=== PATIENT | female | born 1955 | race Caucasian/White ===

== ENCOUNTER 2016-08-25 13:56 | Inpatient (IN) ==
--- NOTE | 2016-08-24 22:20 | Discharge Summary ---
<Julia Meadows - Last Filed: 08/24/16 22:18> Date of Encounter: 08/24/16 - Discharge Diagnosis (1) Arthritis of left hip Priority: Primary Status: Acute (2) HTN (hypertension) Priority: Secondary Status: Chronic Qualifiers: Hypertension type: essential hypertension Qualified Code(s): I10 - Essential (primary) hypertension (3) CAD (coronary artery disease) Priority: Secondary Status: Chronic Qualifiers: Coronary Disease-Associated Artery/Lesion type: unspecified vessel or lesion type Associated angina: angina presence unspecified (4) COPD (chronic obstructive pulmonary disease) Priority: Secondary Status: Chronic Qualifiers: COPD type: unspecified COPD Qualified Code(s): J44.9 - Chronic obstructive pulmonary disease, unspecified (5) Tobacco abuse Priority: Secondary Status: Chronic - Discharge Medications Home Medications: Aspirin Enteric Coated [Aspirin EC] 325 mg PO DAILY #21 tablet. 08/24/16 [Rx] OxyCODONE Immed Rel [Roxicodone 5 MG] 5 - 10 mg PO Q6HR PRN #40 tablet 08/24/16 [Rx] Albuterol Neb [Proventil Neb] 2.5 mg IH Q6HR PRN 08/25/16 [History] Albuterol Sulfate [Albuterol Inhaler] 2 puff IH Q4HR PRN 08/25/16 [History] Aspirin [Ecotrin] 325 mg PO DAILY 08/25/16 [History] ClonazePAM [Klonopin] 1 mg PO BID PRN 08/25/16 [History] Clopidogrel [Plavix] 75 mg PO DAILY 08/25/16 [History] Cyclobenzaprine HCl 5 mg PO TID PRN 08/25/16 [History] Fluticasone Propionate [Flovent Hfa] 2 puff IH BID PRN 08/25/16 [History] Furosemide [Lasix] 40 mg PO DAILY 08/25/16 [History] Gabapentin [Neurontin] 600 mg PO TID 08/25/16 [History] Hydroxyzine HCl 25 - 50 mg PO Q6H PRN 08/25/16 [History] Isosorbide MONOnitrate (24 HR) [Imdur] 30 mg PO DAILY 08/25/16 [History] LevETIRAcetam [Keppra] 1,000 mg PO BID 08/25/16 [History] Losartan Potassium [Cozaar] 50 mg PO BID 08/25/16 [History] Metoprolol XL (24 HR) Succ [Toprol Xl] 50 mg PO BID 08/25/16 [History] Nitroglycerin [Nitrostat] 0.4 mg SL Q5M PRN 08/25/16 [History] Omeprazole [PriLOSEC] 40 mg PO DAILY 08/25/16 [History] Phenytoin ER [Dilantin ER] 200 mg PO BID 08/25/16 [History] Sertraline [Zoloft] 200 mg PO DAILY 08/25/16 [History] Simvastatin [Zocor] 40 mg PO HS 08/25/16 [History] Allergies/Adverse Reactions: Allergies prochlorperazine [From Compazine] Allergy (Verified 08/25/16 14:40) Anaphylaxis celecoxib [From Celebrex] Adverse Reaction (Verified 08/25/16 14:40) Vomiting fentanyl [From Duragesic] Adverse Reaction (Verified 08/25/16 14:40) Itching morphine Adverse Reaction (Verified 08/25/16 14:40) Hives propoxyphene [From Darvon] Adverse Reaction (Verified 08/25/16 14:40) Rash Primary care physician: Roberto Latham MD - Patient Status Disposition: Home, Self-Care Condition: Good - Discharge Instructions Follow Up With: Roberto Latham MD [Primary Care Provider] - - Hospital Course Hospital course: Ms. Milian is a 61 year old female - Time Spent with Patient Total time spent providing and/or coordinating discharge services: <Ace Hernandez - Last Filed: 08/26/16 06:26> Date of Encounter: 08/26/16 Time of Encounter: 06:26 - Discharge Diagnosis (1) Arthritis of left hip Priority: Primary Status: Acute (2) HTN (hypertension) Priority: Secondary Status: Chronic Qualifiers: Hypertension type: essential hypertension Qualified Code(s): I10 - Essential (primary) hypertension (3) CAD (coronary artery disease) Priority: Secondary Status: Chronic Qualifiers: Coronary Disease-Associated Artery/Lesion type: unspecified vessel or lesion type Associated angina: angina presence unspecified (4) COPD (chronic obstructive pulmonary disease) Priority: Secondary Status: Chronic Qualifiers: COPD type: unspecified COPD Qualified Code(s): J44.9 - Chronic obstructive pulmonary disease, unspecified (5) Tobacco abuse Priority: Secondary Status: Chronic Primary care physician: Roberto Latham MD - Patient Status Functional capacity at discharge: uses cane/walker Overall status at discharge: patient is progressing back to baseline - Hospital Course Hospital course: Ms. Milian is a 61 year old female The patient had an uneventful postoperative course. They received antibiotics and physical therapy and were discharged in stable condition. There will follow -up in the office in 2 weeks. Aspirin DVT prophylaxis - Time Spent with Patient Total time spent providing and/or coordinating discharge services:
[2016-08-25] MEDS ORDERED: Gabapentin 300 MG CAPSULE PO ONE (14:02)
[2016-08-25] MEDS ORDERED: Acetaminophen IV 1,000 MG/100 ML INFUS..BTL IVPB ONE (14:02)
[2016-08-25] MEDS ORDERED: Famotidine 20 MG/2 ML VIAL IVP ONE (14:02)
[2016-08-25] MEDS ORDERED: CeFAZolin Pre 2,000 MG/100 ML 2,000 MG/100 ML BAG IVPB ONE (14:08)
[2016-08-25] MEDS ORDERED: Albuterol 2.5 MG/3 ML NEBULIZER IH ONE ×2 (14:08→17:55)
[2016-08-25] MEDS ORDERED: Ringers Solution, Lactated 1,000 ML IVC SCH ×3 (14:15→18:57)
--- NOTE | 2016-08-25 14:49 | Anesthesia Evaluation PreOp ---
Date of Encounter: 08/25/16 Time of Encounter: 14:45 - Past History Planned Operation: Left THR Cardiac History: [place] (2003), HTN, Hyperlipidemia, Cardiac Stent (Stent X 3 last one 2003) Pulmonary History: Former smoker, Asthma, COPD CAD TECHNICIAN History: Seizures (Last one 2 months ago ...on seizure meds) Other Medical History: Denies Any Significant HX Anesthesia History: No Prior Anesthetic Complications : No Alcohol Use: none Drug use: none Medications and Allergies Clindamycin HCl 300 mg PO Q12H #20 capsule 04/13/16 [Rx] Aspirin Enteric Coated [Aspirin EC] 325 mg PO DAILY #21 tablet. 08/24/16 [Rx] OxyCODONE Immed Rel [Roxicodone 5 MG] 5 - 10 mg PO Q6HR PRN #40 tablet 08/24/16 [Rx] Allergies prochlorperazine [From Compazine] Allergy (Verified 08/25/16 14:40) Anaphylaxis celecoxib [From Celebrex] Adverse Reaction (Verified 08/25/16 14:40) Vomiting fentanyl [From Duragesic] Adverse Reaction (Verified 08/25/16 14:40) Itching morphine Adverse Reaction (Verified 08/25/16 14:40) Hives propoxyphene [From Darvon] Adverse Reaction (Verified 08/25/16 14:40) Rash - Meds/Allergy Pre-op Review Medications Reviewed: Yes Allergies Reviewed: Yes Beta Blockers on Current Med List: No Anesthesia Results - Labs Laboratory Tests 08/12/16 08/12/16 14:45 14:45 Hgb 14.9 Hct 45.2 H Plt Count 296 Sodium 135 L Potassium 4.2 BUN 8 Creatinine 0.61 - Imaging EKG: report reviewed (SR) Anesthesia Exam O2 Sat Height 1.65 m Height 1.65 m Weight 64.864 kg Weight 64.864 kg O2 Sat by Pulse Oximetry 98 Vital Signs Temp Pulse Resp Pulse Ox 98.0 F 108 18 98 08/25/16 14:09 08/25/16 14:09 08/25/16 14:09 08/25/16 14:09 Height: 5'5 Weight: 143 lbs NPO (# of Hours): MN Pain Scale: 0 - HEENT Pupil (Motor): Pupils equal, EOMI Mallampati: II Denture Type: Upper: Complete Oral Opening: Less than or equal to 3 - CAD TECHNICIAN LOC: Oriented CAD TECHNICIAN Motor: Normal RUE, Normal LUE, Normal RLE, Normal LLE, Normal Face CAD TECHNICIAN Sensory: Normal: RUE, LUE, RLE, LLE, Face - Cardiac Rhythm: Regular Murmur: None JVD: No Carotid Bruit: No - Pulmonary Breath Sounds: bilateral Clear Respiratory Effort: Symmetrical Anesthesia Assess/Plan ASA Score: 3 (CAD HTN COPD) Modified [place] Scale for Level of Consciousness: Cooperative, oriented, and tranquil Anesthetic Plan: General, Regional Monitoring Plan: Standard Monitors Recovery Plan: PACU (Discussed GA and RA, agrees to proceed)
--- NOTE | 2016-08-25 14:58 | History & Physical Report ---
Date of Encounter: 08/25/16 Time of Encounter: 14:57 24 Hour HP Update - Instructions Instructions: If the History and Physical is less than 30 days old and was completed prior to A.M. admission and or procedure and has NOT been updated on calendar day of procedure please complete this update prior to performing procedure. - Update Patient reports changes in Medical Condition: No Changes in examination, assessment, or condition: No Changes in Medication: No Preop tests/diagnostics Reviewed: Yes Surgery Remains Indicated: Yes Consent for Planned Operative Procedure(s) Verified: Yes - Pre-Operative Checklist Preoperative Checklist Indicated: No Prophylactic Antibiotic Ordered: Yes Is VTE Prophylaxis Indicated?: Yes
[2016-08-25] MEDS ORDERED: *HR* Propofol 200 MG/20 ML VIAL IVP ONE (16:06)
[2016-08-25] MEDS ORDERED: *HR* FentaNYL (PF) 100 MCG/2 ML VIAL ONE ×2 (16:06→17:07)
[2016-08-25] MEDS ORDERED: *HR* Midazolam HCl 2 MG/2 ML VIAL ONE (16:06)
[2016-08-25] MEDS ORDERED: Lidocaine -MPF 2% 2 ML VIAL ONE (16:07)
[2016-08-25] MEDS ORDERED: *HR* Rocuronium Bromide 50 MG/5 ML VIAL ONE (16:07)
[2016-08-25] MEDS ORDERED: Neostigmine Methylsulfate 3 MG/3 ML SYRINGE ONE (17:15)
[2016-08-25] MEDS ORDERED: Ondansetron 4 MG/2 ML VIAL ONE (17:16)
[2016-08-25] MEDS ORDERED: Dexamethasone 4 MG/ML VIAL ONE (17:16)
--- NOTE | 2016-08-25 17:20 | Orthopedic Operative Note ---
Date of procedure: 08/25/16 Pre-op diagnosis: left hip arthritis Post-op diagnosis: same Procedure: Procedure: left Total Hip Replacment Estimated blood loss: 200 cc Hardware: Biomet DM Cup: 50 G7 fin cup Femoral 15 size echo full profile lateralized stem Head: -3 head with Lanie Procedural Notes: Grade 3 arthritic changes femoral head acetabular socket Operative procedure: The patient was brought to the operating room and placed on the operating room table. After general anesthesia was administered the patient was placed in the lateral decubitus position with the operative leg up. All pressure points were padded appropriately and the head was stabilized in the neutral position. The operative extremity was prepped and draped in the sterile surgical fashion patient received IV antibiotic prior to skin incision. A standard posterior approach is made to the operative hip, the incision was made through the skin and subcutaneous tissue hemostasis was obtained with Bovie cautery. Using careful sharp dissection the fascia was identified and incised exposing the external rotators. The external rotators were released off the greater trochanter and tagged with #2 FiberWire suture. The capsule was T'd open and the hip was brought into internal rotation. Patient noted to have grade 3 arthritic changes femoral head. The femoral neck cut was made at the appropriate level. An anterior capsulotomy was performed for the anterior retractor. Soft tissues removed from the acetabulum. Patient noted to have grade 3 arthritic changes acetabulum. Acetabulum was first reamed medially, and then reamed in 15 degrees of anteversion and 45 degrees off the horizontal. It was reamed up to the appropriate size 50. The appropriate-sized 50 acetabular cup was impacted in place in 15 degrees of anteversion and 45 degrees off the horizontal. This had good fit and fixation. The hip was brought back in to internal rotation and prepared with the box brander followed by the canal finder followed by broaching process in 20 degrees anteversion. It was broached up to the appropriate size 15. The femoral implant was impacted in place in 20 degrees of anteversion. Trial reduction found the hip to be stable with -3 head and Lanie. The trials were removed and the real implants were impacted in place. The hip was reduced, patient had apparent equal leg lengths. The hip had excellent stability with forward flexion to 90 degrees adduction of 30 degrees and internal rotation of 60 degrees. The hip had no shuck. The hips after 2 minutes with a Betadine saline solution. It was irrigated out with 2 L of pulse irrigation. The external rotators were reattached to drill holes in the greater trochanter. Fascia was closed with a running #2 PDS suture. The deep tissue was irrigated and closed deep with #1 PDS suture superficially with 0 PDS suture and skin was closed and skin rosa m. The patient was placed in a sterile dressing and abduction pillow. The patient was extubated and transferred to the recovery room in stable condition. Anesthesia: MIRIAM Surgeon: Ace Hernandez Lead Furnace Operator: Julia Meadows Condition: stable Disposition: PACU
[2016-08-25] MEDS ORDERED: *HR* HYDROmorphone (PF) 1 MG/ML SYRINGE ONE (17:46)
[2016-08-25] MEDS: *HR* HYDROmorphone (PF) 1 MG/ML SYRINGE IVP PRN ×8 (17:47→22:41)
[2016-08-25] MEDS ORDERED: *HR* Labetalol 100 MG/20 ML MDV IVP PRN (17:55)
[2016-08-25] MEDS ORDERED: Ondansetron 4 MG/2 ML VIAL IVP ONE (17:55)
[2016-08-25] MEDS ORDERED: *HR* Enoxaparin 30 MG/0.3 ML SYRINGE SQ SCH (18:00)
[2016-08-25 18:15] LABS: Hematocrit 41.8 % (35.3-44.9); Hemoglobin 13.4 g/dL (11.5-15.4)
--- NOTE | 2016-08-25 18:49 | Anesthesia Evaluation Post Op ---
Date of Encounter: 08/25/16 Time of Encounter: 18:55 - Vital Signs Vital Signs: Vital Signs/O2 Sat/Glucose, Most Current Temp Pulse Resp BP Pulse Ox 08/25/16 18:40 97.2 F L 71 18 113/98 100 08/25/16 18:30 80 18 114/74 97 08/25/16 18:20 74 18 107/76 99 08/25/16 18:10 97.2 F L 75 18 119/73 96 08/25/16 18:00 73 18 154/91 97 08/25/16 17:50 75 18 141/100 95 08/25/16 17:40 97.4 F L 88 18 177/92 97 - Lungs Lungs: Clear Ascult./Percussion - Airway Airway: Non-obstructed - Cardiovascular Regular Rate - Mental Status Mental Status: Alert & Oriented, Answers Appropriately - Pain Pain Scale: 1 - Nausea Vomiting Nausea Vomiting: Not Present - Hydration Hydration: Ice chips - Discharge PostOp Status: Transfer Patient to floor
[2016-08-25] MEDS ORDERED: *HR* OxyCODONE Immed Rel 5 MG TABLET PO PRN (18:57)
[2016-08-25] MEDS ORDERED: Fluticasone Propionate Nasal 50 MCG/SPRAY BOTTLE NS PRN (18:57)
[2016-08-25] MEDS ORDERED: Temazepam 15 MG CAPSULE PO PRN (18:57)
[2016-08-25] MEDS ORDERED: Ondansetron 4 MG/2 ML VIAL IVP PRN (18:57)
[2016-08-25] MEDS ORDERED: Nitroglycerin 0.4 MG TAB.SUBL SL PRN (18:57)
[2016-08-25] MEDS ORDERED: Sennosides 8.6 MG TABLET PO PRN (18:57)
[2016-08-25] MEDS ORDERED: MOM Conc 10 ML UD.LIQ PO PRN (18:57)
[2016-08-25] MEDS ORDERED: Naloxone 0.4 MG/ML INJ IVP PRN (18:57)
[2016-08-25] MEDS ORDERED: hydrOXYzine pamoate 25 MG CAPSULE PO PRN (18:57)
[2016-08-25] MEDS: Gabapentin 300 MG CAPSULE PO SCH ×2 (19:45→20:17)
[2016-08-25] MEDS: Ascorbic Acid 500 MG TABLET PO SCH (19:46)
[2016-08-25] MEDS: Metoprolol XL (24 HR) Succ 50 MG TAB.ER.24H PO SCH (20:15)
[2016-08-25] MEDS: levETIRAcetam 250 MG TABLET PO SCH (20:16)
[2016-08-25] MEDS: ceFAZolin 2,000 MG in D5% in Water 100 ML IVPB SCH (20:47)
[2016-08-25] MEDS: *HR* OxyCODONE Immed Rel 5 MG TABLET PO PRN (21:30)
[2016-08-25] MEDS: clonazePAM 1 MG TABLET PO PRN (22:42)
[2016-08-26] MEDS: ceFAZolin 2,000 MG in D5% in Water 100 ML IVPB SCH (01:29)
[2016-08-26] MEDS: *HR* HYDROmorphone (PF) 1 MG/ML SYRINGE IVP PRN ×5 (01:37→22:07)
[2016-08-26 05:17] LABS: Hematocrit 33.4 % (35.3-44.9)
[2016-08-26 05:21] LABS: Hemoglobin 10.7 g/dL (11.5-15.4)
[2016-08-26 05:33] LABS: BUN/Creatinine Ratio 16 (6-26); Blood Urea Nitrogen 10 mg/dL (7-20); Calcium 8.5 mg/dL (8.6-10.8); Carbon Dioxide 22 mEq/L (19-29); Chloride 105 mEq/L (98-109); Glucose 142 mg/dL (70-99); Osmolality,Calculated 279 (280-300); Sodium 134 mEq/L (136-145); eGFR For African Americans > 60 (> 60); eGFR For Non-African Americans > 60 (> 60)
--- NOTE | 2016-08-26 06:27 | Orthopedics Progress Note ---
Date of Encounter: 08/26/16 Time of Encounter: 06:26 - Assessment and Plan (1) Arthritis of left hip Current Visit: Yes Status: Acute (2) HTN (hypertension) Current Visit: Yes Status: Chronic Qualifiers: Hypertension type: essential hypertension Qualified Code(s): I10 - Essential (primary) hypertension (3) CAD (coronary artery disease) Current Visit: Yes Status: Chronic Qualifiers: Coronary Disease-Associated Artery/Lesion type: unspecified vessel or lesion type [place] vs. transplanted heart: [place] heart Associated angina: angina presence unspecified Qualified Code(s): I25.10 - Atherosclerotic heart disease of [place] coronary artery without angina pectoris (4) COPD (chronic obstructive pulmonary disease) Current Visit: Yes Status: Chronic Qualifiers: COPD type: unspecified COPD Qualified Code(s): J44.9 - Chronic obstructive pulmonary disease, unspecified (5) Tobacco abuse Current Visit: Yes Status: Chronic Subjective Interval history: Patient was seen this morning doing well without complaints. Afebrile vital signs stable. Operative extremity: Neurovascularly intact Dressing clean dry and intact Calves nontender Assessment and plan: Continue with postoperative care Hematocrit 33 discharged today Objective Vital signs: Vital Signs Temp Pulse Resp BP Pulse Ox 08/26/16 04:19 98.0 F 91 18 115/76 96 08/25/16 23:50 97.6 F 80 17 101/61 95 08/25/16 21:00 98.1 F 89 16 94/66 97 08/25/16 20:00 98.7 F 86 16 98/65 95 08/25/16 19:30 98.1 F 50 17 107/51 97 08/25/16 19:01 97.8 F 82 18 105/64 95 08/25/16 18:40 97.2 F L 71 18 113/98 100 08/25/16 18:30 80 18 114/74 97 08/25/16 18:20 74 18 107/76 99 08/25/16 18:10 97.2 F L 75 18 119/73 96 08/25/16 18:00 73 18 154/91 97 08/25/16 17:50 75 18 141/100 95 08/25/16 17:40 97.4 F L 88 18 177/92 97 08/25/16 14:09 98.0 F 108 18 98 Intake and Output 08/25/16 08/25/1608/26/17 15:59 23:59 07:59 Intake Total 220 / 220 100 / 100 Output Total 200 / 200 300 / 300 Balance 20 / 20 -200 / -200 Intake: IV Fluids 100 / 100 100 / 100 Ancef 2,000 MG In 100 / 100 100 / 100 Dextrose 5% 100 ML @ 200 mls/hr IVPB Q8HR [facility] Rx#: [id number] Oral 120 / 120 Output: Urine 300 / 300 Estimated Blood Loss 200 / 200 Other: Weight 64.864 kg - Labs CBC & BMP: 08/26/16 04:46 08/26/16 04:46 Labs: Abnormal lab results Hgb 10.7 g/dL (11.5-15.4) L D 08/26/16 04:46 Hct 33.4 % (35.3-44.9) L 08/26/16 04:46 Sodium 134 mEq/L (136-145) L 08/26/16 04:46 Potassium 5.0 mEq/L (3.5-4.5) H 08/26/16 04:46 Glucose 142 mg/dL (70-99) H 08/26/16 04:46 Calculated Osmolality 279 (280-300) L 08/26/16 04:46 Calcium 8.5 mg/dL (8.6-10.8) L 08/26/16 04:46 - VTE Documentation of Mechanical Device: Venous foot pump, device Consult Discharge Plan - Plan Referrals: Roberto Latham MD [Primary Care Provider] -
[2016-08-26] MEDS: *HR* Enoxaparin 30 MG/0.3 ML SYRINGE SQ SCH ×2 (06:44→16:53)
[2016-08-26] MEDS: *HR* OxyCODONE Immed Rel 5 MG TABLET PO PRN ×3 (06:44→16:54)
[2016-08-26] MEDS: clonazePAM 1 MG TABLET PO PRN (08:28)
[2016-08-26] MEDS: Isosorbide MONOnitrate (24 HR) 30 MG TAB.ER.24H PO SCH (08:29)
[2016-08-26] MEDS: Metoprolol XL (24 HR) Succ 50 MG TAB.ER.24H PO SCH ×2 (08:30→22:07)
[2016-08-26] MEDS: Ascorbic Acid 500 MG TABLET PO SCH ×2 (08:30→16:54)
[2016-08-26] MEDS: Furosemide 40 MG TABLET PO SCH (08:30)
[2016-08-26] MEDS: levETIRAcetam 250 MG TABLET PO SCH ×2 (08:30→22:06)
[2016-08-26] MEDS: Aspirin Enteric Coated 325 MG Tablet PO SCH (08:31)
[2016-08-26] MEDS: Gabapentin 300 MG CAPSULE PO SCH ×3 (08:31→22:06)
[2016-08-26] MEDS: Multivit/Ca/Min/Fe/FA 1 TAB TABLET PO SCH (08:48)
[2016-08-26] MEDS: Albuterol 2.5 MG/3 ML NEBULIZER IH PRN (22:28)
[2016-08-27] MEDS: *HR* HYDROmorphone (PF) 1 MG/ML SYRINGE IVP PRN ×4 (01:11→10:21)
[2016-08-27] MEDS: Albuterol 2.5 MG/3 ML NEBULIZER IH PRN (04:09)
[2016-08-27] MEDS: *HR* OxyCODONE Immed Rel 5 MG TABLET PO PRN ×2 (05:39→09:34)
[2016-08-27 05:44] LABS: Hematocrit 27.6 % (35.3-44.9); Hemoglobin 9.2 g/dL (11.5-15.4)
[2016-08-27 05:59] LABS: BUN/Creatinine Ratio 19 (6-26); Blood Urea Nitrogen 10 mg/dL (7-20); Calcium 8.4 mg/dL (8.6-10.8); Carbon Dioxide 26 mEq/L (19-29); Chloride 105 mEq/L (98-109); Glucose 158 mg/dL (70-99); Osmolality,Calculated 282 (280-300); Sodium 135 mEq/L (136-145); eGFR For African Americans > 60 (> 60); eGFR For Non-African Americans > 60 (> 60)
[2016-08-27 06:02] LABS: Potassium 3.8 mEq/L (3.5-4.5)
[2016-08-27 06:46] VITALS: BP 158/75
--- NOTE | 2016-08-27 06:48 | Orthopedics Progress Note ---
Date of Encounter: 08/27/16 Time of Encounter: 06:48 - Assessment and Plan (1) Arthritis of left hip Current Visit: Yes Status: Acute (2) HTN (hypertension) Current Visit: Yes Status: Chronic Qualifiers: Hypertension type: essential hypertension Qualified Code(s): I10 - Essential (primary) hypertension (3) CAD (coronary artery disease) Current Visit: Yes Status: Chronic Qualifiers: Coronary Disease-Associated Artery/Lesion type: unspecified vessel or lesion type [place] vs. transplanted heart: [place] heart Associated angina: angina presence unspecified Qualified Code(s): I25.10 - Atherosclerotic heart disease of [place] coronary artery without angina pectoris (4) COPD (chronic obstructive pulmonary disease) Current Visit: Yes Status: Chronic Qualifiers: COPD type: unspecified COPD Qualified Code(s): J44.9 - Chronic obstructive pulmonary disease, unspecified (5) Tobacco abuse Current Visit: Yes Status: Chronic Subjective Interval history: Patient was seen this morning doing well without complaints. Afebrile vital signs stable. Operative extremity: Neurovascularly intact Dressing clean dry and intact Calves nontender Assessment and plan: Continue with postoperative care Hemoglobin 8.9 discharged today Objective Vital signs: Vital Signs Temp Pulse Resp BP Pulse Ox 08/27/16 06:43 98.3 F 101 18 158/75 94 08/27/16 04:11 20 90 08/27/16 03:36 98.5 F 101 16 154/85 95 08/26/16 22:29 18 92 08/26/16 22:08 98.4 F 95 16 136/83 93 08/26/16 20:34 98.9 F 96 16 143/79 93 08/26/16 15:25 98.7 F 82 18 82/50 94 08/26/16 10:46 98.3 F 95 16 89/62 93 Intake and Output 08/26/16 08/26/16 08/27/16 15:59 23:59 07:59 Intake Total 1240 / 1240 480 / 480 Output Total 600 / 600 1200 / 1200 1000 / 1000 Balance 640 / 640 -720 / -720 -1000 / -1000 Intake: IV Fluids 1000 / 1000 Lactated Ringers 1,000 ML 1000 / 1000 @ 75 mls/hr IVC .[id number] [facility] Rx#:[id number] Oral 240 / 240 480 / 480 Output: Urine 600 / 600 1200 / 1200 1000 / 1000 Other: Meal Lunch Dinner Percent of Meal Consumed 100% 25% # Voids 1 - Labs CBC & BMP: 08/27/16 05:31 08/27/16 05:31 Labs: Abnormal lab results Hgb 9.2 g/dL (11.5-15.4) L D 08/27/16 05:31 Hct 27.6 % (35.3-44.9) L 08/27/16 05:31 Sodium 135 mEq/L (136-145) L 08/27/16 05:31 Creatinine 0.54 mg/dL (0.57-1.11) L 08/27/16 05:31 Glucose 158 mg/dL (70-99) H 08/27/16 05:31 Calcium 8.4 mg/dL (8.6-10.8) L 08/27/16 05:31 - VTE Documentation of Mechanical Device: Venous foot pump, device Consult Discharge Plan - Plan Referrals: Ace Hernandez MD [Partnered Physician] - 09/23/16 10:50 am Julia Meadows, PAC [Physician Inspector And Clerk] - 09/04/16 2:45 pm Roberto Latham MD [Primary Care Provider] -
[2016-08-27] MEDS: *HR* Enoxaparin 30 MG/0.3 ML SYRINGE SQ SCH (06:56)
[2016-08-27] MEDS: Multivit/Ca/Min/Fe/FA 1 TAB TABLET PO SCH (08:12)
[2016-08-27] MEDS: clonazePAM 1 MG TABLET PO PRN (08:12)
[2016-08-27] MEDS: Isosorbide MONOnitrate (24 HR) 30 MG TAB.ER.24H PO SCH (08:12)
[2016-08-27] MEDS: Metoprolol XL (24 HR) Succ 50 MG TAB.ER.24H PO SCH (08:13)
[2016-08-27] MEDS: Furosemide 40 MG TABLET PO SCH (08:13)
[2016-08-27] MEDS: levETIRAcetam 250 MG TABLET PO SCH (08:14)
[2016-08-27] MEDS: Ascorbic Acid 500 MG TABLET PO SCH (08:15)
[2016-08-27] MEDS: Gabapentin 300 MG CAPSULE PO SCH (08:15)
[2016-08-27] MEDS: Aspirin Enteric Coated 325 MG Tablet PO SCH (08:15)
== END 2016-08-27 16:24 | disposition home or self-care (01) | DRG 301 ==
LOC: SAMDAY 13:56 → 3NENU 18:55
PROVIDERS: ADMIT Orthopaedic Surgery; ATTEND Orthopaedic Surgery

== ENCOUNTER 2017-09-09 11:12 | Inpatient (IN) ==
--- NOTE | 2017-09-07 17:23 | Discharge Summary ---
<Julia Meadows - Last Filed: 09/07/17 17:20> Orders not resulted at time of discharge: Pending orders 09/09/17 10:22 XR hip complete RT [XR] Routine H/H [Hemoglobin and Hematocrit] [HEME] Routine Date of Encounter: 09/07/17 - Discharge Diagnosis (1) Arthritis of right hip Priority: Primary Status: Acute (2) Status post total hip replacement, right Priority: Primary Status: Acute (3) HTN (hypertension) Priority: Secondary Status: Chronic Qualifiers: Hypertension type: essential hypertension (4) CAD (coronary artery disease) Priority: Secondary Status: Chronic Qualifiers: Coronary Disease-Associated Artery/Lesion type: due to calcified coronary lesion Qualified Code(s): I25.10 - Atherosclerotic heart disease of [place] coronary artery without angina pectoris; I25.84 - Coronary atherosclerosis due to calcified coronary lesion (5) COPD (chronic obstructive pulmonary disease) Priority: Secondary Status: Chronic Qualifiers: COPD type: unspecified COPD (6) Tobacco abuse Priority: Secondary Status: Chronic - Hospital Course Hospital course: Ms. Milian is a 62 year old female - Time Spent with Patient Total time spent providing and/or coordinating discharge services: - Discharge Medications Home Medications: Albuterol Neb [Proventil Neb] 2.5 mg IH Q6HR PRN 08/25/16 [History] Albuterol Sulfate [Albuterol Inhaler] 2 puff IH Q4HR PRN 08/25/16 [History] Aspirin [Ecotrin] 325 mg PO DAILY 08/25/16 [History] Clopidogrel [Plavix] 75 mg PO DAILY 08/25/16 [History] Cyclobenzaprine HCl 5 mg PO TID PRN 08/25/16 [History] Furosemide [Lasix] 40 mg PO DAILY 08/25/16 [History] Gabapentin [Neurontin] 600 mg PO TID 08/25/16 [History] Isosorbide MONOnitrate (24 HR) [Imdur] 30 mg PO DAILY 08/25/16 [History] LevETIRAcetam [Keppra] 1,000 mg PO BID 08/25/16 [History] Losartan Potassium [Cozaar] 50 mg PO BID 08/25/16 [History] Metoprolol XL (24 HR) Succ [Toprol Xl] 50 mg PO BID 08/25/16 [History] Nitroglycerin [Nitrostat] 0.4 mg SL Q5M PRN 08/25/16 [History] Omeprazole [PriLOSEC] 40 mg PO DAILY 08/25/16 [History] Phenytoin ER [Dilantin ER] 200 mg PO BID 08/25/16 [History] Sertraline [Zoloft] 200 mg PO DAILY 08/25/16 [History] Simvastatin [Zocor] 40 mg PO HS 08/25/16 [History] clonazePAM [Klonopin] 1 mg PO BID PRN 08/25/16 [History] Aspirin Enteric Coated [Aspirin EC] 325 mg PO BID #20 tablet. 09/07/17 [Rx] OxyCODONE Immed Rel [Roxicodone 5 MG] 5 mg PO Q6HR PRN 7 Days #28 tablet [Rx] Doxepin HCl 10 mg PO HS 09/09/17 [History] Lactose-Reduced Food [Boost] 237 ml PO DAILY 09/09/17 [History] Triamcinolone Acet 0.1% CRM [Kenalog] 1 appl TP BID 09/09/17 [History] Allergies/Adverse Reactions: 3 Allergy/AdvReac Type Severity Reaction Status Date / Time prochlorperazine Allergy Anaphylaxis Verified 09/09/17 11:37 [From Compazine] celecoxib [From Celebrex] AdvReac Vomiting Verified 09/09/17 11:37 fentanyl [From Duragesic] AdvReac Itching Verified 09/09/17 11:37 morphine AdvReac Hives Verified 09/09/17 11:37 propoxyphene [From Darvon] AdvReac Rash Verified 09/09/17 11:37 Primary care physician: Anton Adams MD - Patient Status Disposition: Home Health Service Condition: Good - Discharge Instructions Follow Up With: Anton Admas MD [Primary Care Provider] - <Ace Hernandez - Last Filed: 09/10/17 07:55> Orders not resulted at time of discharge: Pending orders 09/09/17 10:22 XR hip complete RT [XR] Routine H/H [Hemoglobin and Hematocrit] [HEME] Routine 09/09/17 11:40 US anesthesia pain block [US] Routine Date of Encounter: 09/10/17 Time of Encounter: 07:54 - Discharge Diagnosis (1) Abdominal aortic aneurysm (AAA) 30 to 34 mm in diameter Priority: Secondary Status: Chronic Comments: CT scan reviewed with Dr. Costello found to be safe for surgery recommends following repeat CT scans on a yearly basis. (2) HTN (hypertension) Priority: Secondary Status: Chronic Qualifiers: Hypertension type: unspecified Qualified Code(s): I10 - Essential (primary ) hypertension (3) CAD (coronary artery disease) Priority: Secondary Status: Chronic Qualifiers: Coronary Disease-Associated Artery/Lesion type: due to calcified coronary lesion Qualified Code(s): I25.10 - Atherosclerotic heart disease of [place] coronary artery without angina pectoris; I25.84 - Coronary atherosclerosis due to calcified coronary lesion (4) COPD (chronic obstructive pulmonary disease) Priority: Secondary Status: Chronic Qualifiers: COPD type: unspecified COPD Qualified Code(s): J44.9 - Chronic obstructive pulmonary disease, unspecified (5) Tobacco abuse Priority: Secondary Status: Chronic (6) Arthritis of right hip Priority: Primary Status: Chronic (7) Status post total hip replacement, right Priority: Primary Status: Acute - Hospital Course Hospital course: Ms. Milian is a 62 year old female Status post total hip replacement The patient had an uneventful postoperative course. They received antibiotics and physical therapy and were discharged in stable condition. There will follow -up in the office in 2 weeks. - Time Spent with Patient Total time spent providing and/or coordinating discharge services: Primary care physician: Anton Adams MD - Patient Status Functional capacity at discharge: uses cane/walker Overall status at discharge: patient is progressing back to baseline
[~2017-09-09 11:12] MED LIST: Acetaminophen IV 1,000 MG/100 ML INFUS..BTL IVPB ONE; Famotidine 20 MG/2 ML VIAL IVP ONE; Pregabalin 75 MG CAPSULE PO ONE; Ringers Solution, Lactated 1,000 ML IVC SCH
[2017-09-09] MEDS ORDERED: ROPIVACAINE HCL/PF 0.5% 30 ML VIAL ONE (11:17)
[2017-09-09] MEDS ORDERED: Tetracaine/PF 20 MG/2 ML AMPUL ONE (11:18)
[2017-09-09] MEDS ORDERED: Ethanol\\Acetic Acid\\Na Ace\\Ben 1,000 ML IRRIG.SOLN IR ONE ×2 (11:20→12:51)
--- NOTE | 2017-09-09 11:44 | Anesthesia Evaluation PreOp ---
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 Other Medical History: Denies Any Significant HX Anesthesia History: No Prior Anesthetic Complications : No Alcohol Use: none Drug use: none Medications and Allergies Albuterol Neb [Proventil Neb] 2.5 mg IH Q6HR PRN 08/25/16 [History] Albuterol Sulfate [Albuterol Inhaler] 2 puff IH Q4HR PRN 08/25/16 [History] Aspirin [Ecotrin] 325 mg PO DAILY 08/25/16 [History] Clopidogrel [Plavix] 75 mg PO DAILY 08/25/16 [History] Cyclobenzaprine HCl 5 mg PO TID PRN 08/25/16 [History] Furosemide [Lasix] 40 mg PO DAILY 08/25/16 [History] Gabapentin [Neurontin] 600 mg PO TID 08/25/16 [History] Isosorbide MONOnitrate (24 HR) [Imdur] 30 mg PO DAILY 08/25/16 [History] LevETIRAcetam [Keppra] 1,000 mg PO BID 08/25/16 [History] Losartan Potassium [Cozaar] 50 mg PO BID 08/25/16 [History] Metoprolol XL (24 HR) Succ [Toprol Xl] 50 mg PO BID 08/25/16 [History] Nitroglycerin [Nitrostat] 0.4 mg SL Q5M PRN 08/25/16 [History] Omeprazole [PriLOSEC] 40 mg PO DAILY 08/25/16 [History] Phenytoin ER [Dilantin ER] 200 mg PO BID 08/25/16 [History] Sertraline [Zoloft] 200 mg PO DAILY 08/25/16 [History] Simvastatin [Zocor] 40 mg PO HS 08/25/16 [History] clonazePAM [Klonopin] 1 mg PO BID PRN 08/25/16 [History] Aspirin Enteric Coated [Aspirin EC] 325 mg PO BID #20 tablet. 09/07/17 [Rx] OxyCODONE Immed Rel [Roxicodone 5 MG] 5 mg PO Q6HR PRN 7 Days #28 tablet 05/07/ 18 [Rx] Doxepin HCl [Doxepin HCl] 10 mg PO HS 09/09/17 [History] Lactose-Reduced Food [Boost] 237 ml PO DAILY 09/09/17 [History] Triamcinolone Acet 0.1% CRM [Kenalog] 1 appl TP BID 09/09/17 [History] 3 Allergy/AdvReac Type Severity Reaction Status Date / Time prochlorperazine Allergy Anaphylaxis Verified 09/09/17 11:37 [From Compazine] celecoxib [From Celebrex] AdvReac Vomiting Verified 09/09/17 11:37 fentanyl [From Duragesic] AdvReac Itching Verified 09/09/17 11:37 morphine AdvReac Hives Verified 09/09/17 11:37 propoxyphene [From Darvon] AdvReac Rash Verified 09/09/17 11:37 - Meds/Allergy Pre-op Review Medications Reviewed: Yes Allergies Reviewed: Yes Beta Blockers on Current Med List: No Anesthesia Results - Labs Laboratory Tests 09/07/17 09/07/17 09/07/17 11:52 11:52 11:52 Hgb 14.4 Hct 43.1 Plt Count 275 PT 12.3 H INR 1.1 APTT 31.8 Sodium 137 Potassium 4.3 BUN 10 Creatinine 0.37 L - Imaging EKG: report reviewed (SR, possible Atrial Enlargement) Anesthesia Exam O2 Sat Height 1.65 m Height 1.65 m Weight 57.606 kg Weight 57.606 kg O2 Sat by Pulse Oximetry 94 Vital Signs Temp Pulse Resp BP Pulse Ox 98.6 F 75 18 122/68 94 09/09/17 11:37 09/09/17 11:37 09/09/17 11:37 09/09/17 11:37 09/09/17 11:37 Height: 5'5 Weight: 127 lbs NPO (# of Hours): MN - HEENT Pupil (Motor): Pupils equal, EOMI Mallampati: II Denture Type: Upper: Complete Oral Opening: Less than or equal to 3 - 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 MINER OPERATOR LOC: Oriented BORE MINER OPERATOR Motor: Normal RUE, Normal LUE, Normal RLE, Normal LLE, Normal Face BORE MINER OPERATOR Sensory: Normal: RUE, LUE, RLE, LLE, Face - Cardiac Rhythm: Regular Murmur: None JVD: No Carotid Bruit: No - Pulmonary Breath Sounds: bilateral Clear Respiratory Effort: Symmetrical Anesthesia Assess/Plan ASA Score: 3 (CAD HTN COPD) Modified Shobonier Scale for Level of Consciousness: Cooperative, oriented, and tranquil Anesthetic Plan: General, Regional Monitoring Plan: Standard Monitors Recovery Plan: PACU (Discussed GA and Fascia Iliaca Block, agrees to proceed)
[2017-09-09] MEDS ORDERED: Lidocaine -MPF 4% 5 ML AMPUL ONE (11:47)
[2017-09-09] MEDS ORDERED: CeFAZolin Syr 2,000MG/20 ML 2,000 MG/20 ML SYRINGE IVPB ONE ×2 (11:51→12:00)
[2017-09-09] MEDS ORDERED: Albuterol 2.5 MG/3 ML NEBULIZER IH ONE (11:51)
[2017-09-09] MEDS ORDERED: Lidocaine -MPF 1% 2 ML VIAL ID ONE (11:51)
--- NOTE | 2017-09-09 11:57 | History & Physical Report ---
Date of Encounter: 09/09/17 Time of Encounter: 11:57 24 Hour HP Update - Instructions Instructions: If the History and Physical is less than 30 days old and was completed prior to A.M. admission and or procedure and has NOT been updated on calendar day of procedure please complete this update prior to performing procedure. - Update Patient reports changes in Medical Condition: No Changes in examination, assessment, or condition: No Changes in Medication: No Preop tests/diagnostics Reviewed: Yes Surgery Remains Indicated: Yes Consent for Planned Operative Procedure(s) Verified: Yes - Pre-Operative Checklist Preoperative Checklist Indicated: No Prophylactic Antibiotic Ordered: Yes Is VTE Prophylaxis Indicated?: Yes
[2017-09-09] MEDS ORDERED: Ringers Solution, Lactated 1,000 ML IVC SCH ×2 (12:00→15:38)
[2017-09-09] MEDS ORDERED: *HR* Midazolam HCl 2 MG/2 ML VIAL ONE (12:55)
--- NOTE | 2017-09-09 14:07 | Orthopedic Operative Note ---
Date of procedure: 09/09/17 Pre-op diagnosis: Right hip arthritis Post-op diagnosis: same Procedure: Procedure: Right Total Hip Replacment robotic-assisted Estimated blood loss: 200 cc Hardware: Metal and polyethylene replacement. Gilma DM Cup: 52 cup Femoral size 10 stem Head: 8 head with Lanie Procedural Notes: Grade 4 arthritic changes femoral head acetabular socket, procedure performed with robotic assistance. 7 mm short operative versus nonoperative leg measured by preoperative CT Operative procedure: The patient was brought to the operating room and placed on the operating room table. After general anesthesia was administered the patient was placed in the lateral decubitus position with the operative leg up. All pressure points were padded appropriately and the head was stabilized in the neutral position. The operative extremity was prepped and draped in the sterile surgical fashion patient received IV antibiotic prior to skin incision. 3 Steinmann pins were placed in the iliac crest 3 cm proximal to the anterior superior iliac spine this was for the robotic-assisted sensor. This was done through a small 2 cm incision. A standard posterior approach is made to the operative hip, the incision was made through the skin and subcutaneous tissue hemostasis was obtained with Bovie cautery. Using careful sharp dissection the fascia was identified and incised exposing the external rotators. The femoral checkpoint was placed leg length was measured at this time utilizing robotic assistance. The external rotators were released off the greater trochanter and tagged with # 2 FiberWire suture. The capsule was T'd open and the hip was brought into internal rotation. Patient noted to have grade 4 arthritic changes femoral head. The femoral neck cut was made at the appropriate level roughly 15 mm proximal to the lesser trochanter aced on preoperative templating. An anterior capsulotomy was performed for the anterior retractor. Soft tissues removed from the acetabulum. Patient noted to have grade 4 arthritic changes acetabulum. The acetabulum checkpoint was placed confirmed. The acetabulum was then mapped with robotic assistance. Based on the preoperative plan the acetabulum was reamed in one step with a 51 reamer. The 52 acetabulum was impacted with robotic assistance and 39 degrees of abduction and 20 degrees of anteversion. The hip was brought back in to internal rotation and prepared with the wire bound box machine operator followed by the canal finder followed by the reaming process to a size 9/ 10 broaching process in 20 degrees anteversion. It was broached up to the appropriate size 8. Trial reduction revealed leg lengths close to normal. The femoral implant was impacted in place in 20 degrees of anteversion. Trial reduction found the hip to be stable with 10 head and Lanie. The trials were removed and the real implants were impacted in place. The hip was reduced, patient had robotic confirmed leg length of 0 mm longer than the contralateral side. The hip had excellent stability with forward flexion to 90 degrees adduction of 30 degrees and internal rotation of 60 degrees. The hip had no shuck. The hips after 2 minutes with a antibacterial solution. It was irrigated out with 2 L of pulse irrigation. The checkpoints were removed, Steinmann pins were removed. The hip was closed by the PA. The deep tissue was irrigated and closed deep with #1 PDS suture superficially with 0 PDS suture and skin was closed with Dermabond and zip tie. The patient was placed in a sterile dressing and abduction pillow. The patient was extubated and transferred to the recovery room in stable condition. Anesthesia: GETA Surgeon: Ace Hernandez Was there an telecom assistant present: Yes Manager Of It: Julia Meadows Estimated blood loss (cc): 200 Condition: stable Disposition: PACU
[2017-09-09] MEDS ORDERED: *HR* OxyCODONE Immed Rel 5 MG TABLET PO PRN ×2 (14:09→15:38)
[2017-09-09] MEDS ORDERED: Ondansetron 4 MG/2 ML VIAL IVP ONE (14:09)
[2017-09-09] MEDS: *HR* HYDROmorphone (PF) 1 MG/ML SYRINGE IVP PRN ×4 (14:45→15:00)
[2017-09-09 15:31] LABS: Hematocrit 37.8 % (35.3-44.9)
[2017-09-09 15:36] LABS: Hemoglobin 12.5 g/dL (11.5-15.4)
[2017-09-09] MEDS ORDERED: Temazepam 15 MG CAPSULE PO PRN (15:38)
[2017-09-09] MEDS ORDERED: Ondansetron 4 MG/2 ML VIAL IVP PRN (15:38)
[2017-09-09] MEDS ORDERED: clonazePAM 1 MG TABLET PO PRN (15:38)
[2017-09-09] MEDS ORDERED: MOM Conc 10 ML UD.LIQ PO PRN (15:38)
[2017-09-09] MEDS ORDERED: traMADol 50 MG TABLET PO PRN (15:38)
[2017-09-09] MEDS ORDERED: Sennosides 8.6 MG TABLET PO PRN (15:38)
[2017-09-09] MEDS ORDERED: Naloxone 0.4 MG/ML INJ IVP PRN (15:38)
[2017-09-09] MEDS ORDERED: Albuterol 2.5 MG/3 ML NEBULIZER IH PRN (15:38)
[2017-09-09] MEDS ORDERED: Nitroglycerin 0.4 MG TAB.SUBL SL PRN (15:38)
--- NOTE | 2017-09-09 15:42 | Anesthesia Evaluation Post Op ---
Date of Encounter: 09/09/17 Time of Encounter: 15:40 - Vital Signs Vital Signs: Vital Signs/O2 Sat/Glucose, Most Current Temp Pulse Resp BP Pulse Ox 09/09/17 15:24 97.3 F L 72 16 137/74 95 09/09/17 15:14 69 16 134/76 95 09/09/17 15:04 97.6 F 74 16 136/72 94 09/09/17 14:54 72 16 140/75 94 09/09/17 14:44 72 16 140/73 95 09/09/17 14:34 98.1 F 85 16 151/96 98 09/09/17 13:08 79 14 103/67 96 09/09/17 12:54 90 16 136/68 96 09/09/17 12:45 93 18 133/94 98 09/09/17 12:34 18 122/68 94 - Lungs Lungs: Clear Ascult./Percussion - Airway Airway: Non-obstructed - Cardiovascular Regular Rate - Mental Status Mental Status: Alert & Oriented, Answers Appropriately - Pain Pain Scale: 1 - Nausea Vomiting Nausea Vomiting: Not Present - Hydration Hydration: Ice chips - Discharge PostOp Status: Transfer Patient to floor
[2017-09-09] MEDS ORDERED: *HR* Enoxaparin 30 MG/0.3 ML SYRINGE SQ SCH (18:00)
[2017-09-09] MEDS: Ascorbic Acid 500 MG TABLET PO SCH (18:05)
[2017-09-09] MEDS: Gabapentin 300 MG CAPSULE PO SCH ×2 (18:54→22:43)
[2017-09-09] MEDS ORDERED: (Doxepin Hcl [Doxepin Hcl] 10 MG) PO SCH (21:00)
[2017-09-09] MEDS: Metoprolol XL (24 HR) Succ 50 MG TAB.ER.24H PO SCH (22:43)
[2017-09-09] MEDS: Triamcinolone Acet 0.1% CRM 15 GM TUBE TP SCH (22:44)
[2017-09-09] MEDS: levETIRAcetam 250 MG TABLET PO SCH (22:44)
[2017-09-09] MEDS: *HR* Enoxaparin 30 MG/0.3 ML SYRINGE SQ SCH (23:00)
[2017-09-09] MEDS: CeFAZolin Pre 2,000 MG/100 ML 2,000 MG/100 ML BAG IVPB SCH (23:01)
[2017-09-10] MEDS: *HR* OxyCODONE/APAP 5/325 TABLET PO PRN ×2 (01:35→06:27)
[2017-09-10] MEDS: CeFAZolin Pre 2,000 MG/100 ML 2,000 MG/100 ML BAG IVPB SCH (06:13)
[2017-09-10] MEDS: *HR* Enoxaparin 30 MG/0.3 ML SYRINGE SQ SCH (06:14)
[2017-09-10 06:18] LABS: BUN/Creatinine Ratio 24 (6-26); Blood Urea Nitrogen 9 mg/dL (8-23); Calcium 8.5 mg/dL (8.6-10.3); Carbon Dioxide 21 mEq/L (23-29); Chloride 106 mEq/L (98-107); Glucose 150 mg/dL (70-105); Osmolality,Calculated 284 (280-300); Potassium 4.2 mEq/L (3.5-5.1); Sodium 136 mEq/L (136-145); eGFR For African Americans > 60 (> 60); eGFR For Non-African Americans > 60 (> 60)
[2017-09-10 06:22] LABS: Hematocrit 37.1 % (35.3-44.9); Hemoglobin 12.1 g/dL (11.5-15.4)
[2017-09-10 07:42] VITALS: BP 134/81
--- NOTE | 2017-09-10 07:56 | Orthopedics Progress Note ---
Date of Encounter: 09/10/17 Time of Encounter: 07:55 - Assessment and Plan (1) Abdominal aortic aneurysm (AAA) 30 to 34 mm in diameter Current Visit: Yes Status: Chronic (2) HTN (hypertension) Current Visit: No Status: Chronic Qualifiers: Hypertension type: unspecified Qualified Code(s): I10 - Essential (primary ) hypertension (3) CAD (coronary artery disease) Current Visit: No Status: Chronic Qualifiers: Coronary Disease-Associated Artery/Lesion type: due to calcified coronary lesion Qualified Code(s): I25.10 - Atherosclerotic heart disease of [place] coronary artery without angina pectoris; I25.84 - Coronary atherosclerosis due to calcified coronary lesion (4) COPD (chronic obstructive pulmonary disease) Current Visit: No Status: Chronic Qualifiers: COPD type: unspecified COPD Qualified Code(s): J44.9 - Chronic obstructive pulmonary disease, unspecified (5) Tobacco abuse Current Visit: No Status: Chronic (6) Arthritis of right hip Current Visit: No Status: Chronic (7) Status post total hip replacement, right Current Visit: No Status: Acute Subjective Interval history: Patient was seen this morning doing well without complaints. Afebrile vital signs stable. Operative extremity: Neurovascularly intact Dressing clean dry and intact Calves nontender Assessment and plan: Continue with postoperative care Hematocrit 37 discharged today Objective Vital signs: Vital Signs Temp Pulse Resp BP Pulse Ox 09/10/17 06:55 97.8 F 83 14 134/81 95 09/10/17 03:45 97.8 F 76 14 138/74 96 09/09/17 23:57 97.5 F L 65 16 138/74 97 09/09/17 19:29 97.5 F L 77 16 104/67 95 09/09/17 18:08 98.2 F 69 12 121/68 96 09/09/17 17:00 98.4 F 68 16 129/74 94 09/09/17 16:25 98.3 F 71 17 126/70 93 09/09/17 15:50 98.4 F 75 17 122/67 92 09/09/17 15:24 97.3 F L 72 16 137/74 95 09/09/17 15:14 69 16 134/76 95 09/09/17 15:04 97.6 F 74 16 136/72 94 09/09/17 14:54 72 16 140/75 94 09/09/17 14:44 72 16 140/73 95 09/09/17 14:34 98.1 F 85 16 151/96 98 09/09/17 13:08 79 14 103/67 96 09/09/17 12:54 90 16 136/68 96 09/09/17 12:45 93 18 133/94 98 09/09/17 12:34 18 122/68 94 09/09/17 11:37 98.6 F 75 18 122/68 94 Intake and Output 09/09/17 09/09/17 09/10/17 15:59 23:59 07:59 Intake Total 100 / 100 500 / 500 Output Total 200 / 200 Balance -200 / -200 100 / 100 500 / 500 Intake: IV Fluids 100 / 100 Ancef Premix 2,000 MG/100 ML 2, 100 / 100 000 mg In 100 ml @ 200 mls/hr IVPB Q8H ANA Rx#:[id number] Oral 500 / 500 Output: Estimated Blood Loss 200 / 200 Other: # Voids 1 Weight 57.606 kg - Labs CBC & BMP: 09/10/17 01:49 09/10/17 01:49 Labs: Abnormal lab results Carbon Dioxide 21 mEq/L (23-29) L 09/10/17 01:49 Creatinine 0.38 mg/dL (0.60-1.20) L 09/10/17 01:49 Glucose 150 mg/dL (70-105) H 09/10/17 01:49 Calcium 8.5 mg/dL (8.6-10.3) L 09/10/17 01:49 - VTE Documentation of Mechanical Device: Venous foot pump, device Consult Discharge Plan - Plan Referrals: Anton Adams MD [Primary Care Provider] -
[2017-09-10] MEDS ORDERED: Isosorbide MONOnitrate (24 HR) 30 MG TAB.ER.24H PO SCH (09:00)
[2017-09-10] MEDS ORDERED: Multivit/Ca/Min/Fe/FA 1 TAB TABLET PO SCH (09:00)
[2017-09-10] MEDS ORDERED: Furosemide 40 MG TABLET PO SCH (09:00)
[2017-09-10] MEDS ORDERED: NON-FORMULARY MEDICATION 1 EACH EACH (Lactose-Reduced Food [Boost] 237 ML) PO SCH (09:00)
[2017-09-10] MEDS ORDERED: Aspirin Enteric Coated 325 MG Tablet PO SCH (09:00)
[2017-09-10] MEDS: Gabapentin 300 MG CAPSULE PO SCH (09:33)
[2017-09-10] MEDS: levETIRAcetam 250 MG TABLET PO SCH (09:34)
[2017-09-10] MEDS: Metoprolol XL (24 HR) Succ 50 MG TAB.ER.24H PO SCH (09:34)
[2017-09-10] MEDS: Ascorbic Acid 500 MG TABLET PO SCH (09:34)
[2017-09-10] MEDS: Triamcinolone Acet 0.1% CRM 15 GM TUBE TP SCH (09:37)
== END 2017-09-10 11:12 | disposition home health service (06) | DRG 301 ==
LOC: SAMDAY 11:12 → 3NENU 15:34
PROVIDERS: ADMIT Orthopaedic Surgery; ATTEND Orthopaedic Surgery

== ENCOUNTER 2019-08-08 07:53 | Inpatient (IN) ==
[2019-08-08] MEDS: Ringers Solution, Lactated 1,000 ML IVC SCH ×3 (11:03→19:00)
[2019-08-08] MEDS ORDERED: *HR* Propofol 200 MG/20 ML VIAL IVP ONE (11:04)
[2019-08-08] MEDS ORDERED: Lidocaine -MPF 2% 2 ML VIAL ONE (11:04)
[2019-08-08] MEDS ORDERED: *HR* Midazolam HCl 2 MG/2 ML VIAL ONE (11:27)
[2019-08-08] MEDS ORDERED: Dexamethasone 4 MG/ML VIAL ONE ×2 (11:27→11:29)
[2019-08-08] MEDS ORDERED: Ondansetron 4 MG/2 ML VIAL ONE (11:27)
[2019-08-08] MEDS ORDERED: Lidocaine HCL 4 ML Topical Solution (Laryng-O-Jet Kit Sterile Pak) TP ONE (11:29)
[2019-08-08] MEDS ORDERED: *HR* OxyCODONE Immed Rel 5 MG TABLET PO PRN (11:43)
[2019-08-08] MEDS ORDERED: Ethanol\\Acetic Acid\\Na Ace\\Ben 1,000 ML IRRIG.SOLN IR ONE (11:48)
[2019-08-08] MEDS ORDERED: *HR* HYDROMORPHONE 2 MG/ML VIAL ONE ×2 (12:09→14:52)
[2019-08-08] MEDS ORDERED: *HR* PHENYLEPHRINE 1,000 MCG/10 ML SYRINGE IVP ONE ×2 (12:30→14:25)
[2019-08-08] MEDS ORDERED: *HR* Rocuronium Bromide 50 MG/5 ML VIAL ONE (12:34)
[2019-08-08] MEDS ORDERED: *HR* Metoprolol 5 MG/5 ML VIAL IVP ONE (13:13)
[2019-08-08] MEDS ORDERED: Albumin Human 5% 12.5 GM/250 ML IV.SOLN ONE ×2 (13:51→14:08)
[2019-08-08] MEDS ORDERED: Acetaminophen IV 0 MG/0 ML INFUS..BTL ONE (13:55)
[2019-08-08] MEDS ORDERED: *HR* Vasopressin 20 UNIT/ML VIAL ONE (14:09)
[2019-08-08] MEDS ORDERED: Heparin 1,000 UNITS/500 mL 500 ML ONE (14:15)
[2019-08-08 14:40] LABS: Basophils # 0.1 K/mcL (0.0-0.2); Basophils % 0.3 %; Eosinophils # 0.2 K/mcL (0.0-0.6); Eosinophils % 0.7 %; Hematocrit 21.1 % (35.3-44.9); Hemoglobin 6.8 g/dL (11.5-15.4); Immature Granulocytes % 1.2 % (0-4); Immature Platelets 3.6 % (1.1-6.1); Lymphocytes # 4.9 K/mcL (0.6-4.6); Lymphocytes % 20.2 %; Mean Corpuscular HGB Conc 32.2 g/dL (31.6-35.5); Mean Corpuscular Hemoglobin 29.3 pg (28.0-33.3); Mean Corpuscular Volume 90.9 fL (83.0-100.0); Mean Platelet Volume 9.7 fL (9.4-12.4); Monocytes # 0.4 K/mcL (0.0-1.3); Monocytes % 1.7 %; Neutrophils # 18.3 K/mcL (1.6-8.9); Platelet Count 279 K/mcL (140-400); Red Blood Count 2.32 M/mcL (3.82-4.97); Red Cell Distribution Width 13.2 % (11.5-14.5); Segmented Neutrophils % 75.9 %; White Blood Count 24.1 K/mcL (4.3-11.1)
[2019-08-08 14:51] LABS: ABG Base Excess -5 mEq/L (-2 to 3); ABG Chloride 106 mEq/L (98-107); ABG Glucose 320 mg/dL (60-95); ABG HCO3 22 mEq/L (21-27); ABG Ionized Calcium 1.16 mmol/L (1.15-1.35); ABG Oxygen Saturation 99 % (95-98); ABG PCO2 54 mmHg (35-45); ABG PH 7.22 pH Units (7.32-7.45); ABG PO2 158 mmHg (85-104); ABG TCO2 24 mEq/L (20-26)
[2019-08-08 14:56] LABS: ABG Base Excess -4 mEq/L (-2 to 3); ABG Chloride 104 mEq/L (98-107); ABG Glucose 338 mg/dL (60-95); ABG HCO3 23 mEq/L (21-27); ABG Ionized Calcium 1.18 mmol/L (1.15-1.35); ABG Oxygen Saturation 100 % (95-98); ABG PCO2 51 mmHg (35-45); ABG PH 7.25 pH Units (7.32-7.45); ABG PO2 333 mmHg (85-104); ABG TCO2 24 mEq/L (20-26)
[2019-08-08] MEDS ORDERED: *HR* Phenylephrine 10 MG/ML VIAL ONE (14:58)
[2019-08-08] MEDS ORDERED: Nitroglycerin 1 INCH/GM PACKET ONE (15:11)
[2019-08-08] MEDS ORDERED: *HR* HYDROmorphone 2 MG TABLET PO PRN (15:48)
[2019-08-08] MEDS: *HR* HYDROmorphone PF 0.5 MG/0.5 ML SYRINGE IVP PRN ×2 (15:59→16:14)
[2019-08-08] MEDS ORDERED: Insulin Human Regular 10 UNIT in 0.9 % Sodium Chloride 10 ML IV ONE (16:09)
[2019-08-08] MEDS ORDERED: Ondansetron 4 MG/2 ML VIAL IVP ONE (16:45)
[2019-08-08] MEDS ORDERED: *HR* Promethazine 25 MG/ML VIAL IVP PRN ×2 (16:47→18:47)
[2019-08-08 17:22] LABS: Hematocrit 27.1 % (35.3-44.9)
[2019-08-08 17:24] LABS: Hemoglobin 9.2 g/dL (11.5-15.4)
[2019-08-08] MEDS ORDERED: Naloxone 0.4 MG/ML INJ IVP PRN (18:47)
[2019-08-08] MEDS ORDERED: Nitroglycerin 0.4 MG TAB.SUBL SL PRN (18:47)
[2019-08-08] MEDS ORDERED: Ondansetron 4 MG/2 ML VIAL IVP PRN (18:47)
[2019-08-08] MEDS ORDERED: *HR* Dextrose 50 % in Water (Syg) 50 ML SYRINGE IVP PRN (18:47)
[2019-08-08] MEDS ORDERED: D5% in Water 1,000 ML IVC PRN (18:47)
[2019-08-08] MEDS ORDERED: Gabapentin 300 MG CAPSULE PO PRN (18:47)
[2019-08-08] MEDS ORDERED: Dextrose Gel 15 GM/37.5 ML TUBE PO PRN ×2 (18:47)
[2019-08-08] MEDS ORDERED: MOM Conc 10 ML UD.LIQ PO PRN (18:47)
[2019-08-08] MEDS ORDERED: Sennosides 8.6 MG TABLET PO PRN (18:47)
[2019-08-08] MEDS: Ascorbic Acid 500 MG TABLET PO SCH (20:57)
[2019-08-08] MEDS: levETIRAcetam 250 MG TABLET PO SCH (20:58)
[2019-08-08] MEDS ORDERED: (Buprenorphine Hcl/Naloxone Hcl [Suboxone 8 Mg-2 Mg S SL SCH (21:00)
[2019-08-08] MEDS: Metoprolol XL (24 HR) Succ 50 MG TAB.ER.24H PO SCH (21:00)
[2019-08-08] MEDS: traZODone 50 MG TABLET PO SCH (21:00)
[2019-08-08] MEDS ORDERED: 0.9 % Sodium Chloride 250 ML ONE (22:06)
[2019-08-09] MEDS ORDERED: 0.9 % Sodium Chloride 250 ML ONE (03:46)
[2019-08-09] MEDS ORDERED: Furosemide 20 MG/2 ML VIAL IVP ONE (07:36)
[2019-08-09] MEDS ORDERED: Aspirin 325 MG TABLET PO SCH (08:00)
[2019-08-09 08:09] LABS: Basophils % 0.1 %; Hematocrit 30.7 % (35.3-44.9); Hemoglobin 10.5 g/dL (11.5-15.4); Immature Granulocytes % 0.5 % (0-4); Lymphocytes % 20.1 %; Mean Corpuscular HGB Conc 34.2 g/dL (31.6-35.5); Mean Corpuscular Hemoglobin 29.1 pg (28.0-33.3); Mean Platelet Volume 9.8 fL (9.4-12.4); Monocytes # 0.8 K/mcL (0.0-1.3); Monocytes % 8.2 %; Neutrophils # 6.9 K/mcL (1.6-8.9); Platelet Count 110 K/mcL (140-400); Red Blood Count 3.61 M/mcL (3.82-4.97); Red Cell Distribution Width 13.7 % (11.5-14.5); Segmented Neutrophils % 71.1 %; White Blood Count 9.7 K/mcL (4.3-11.1)
[2019-08-09] MEDS: Isosorbide MONOnitrate (24 HR) 30 MG TAB.ER.24H PO SCH (08:27)
[2019-08-09 08:28] LABS: BUN/Creatinine Ratio 29 (6-26); Blood Urea Nitrogen 7 mg/dL (8-23); Calcium 7.6 mg/dL (8.6-10.3); Carbon Dioxide 21 mEq/L (23-29); Chloride 109 mEq/L (98-107); Glucose 134 mg/dL (70-105); Osmolality,Calculated 280 (280-300); Potassium 3.9 mEq/L (3.5-5.1); Sodium 135 mEq/L (136-145); eGFR For African Americans > 60 (> 60); eGFR For Non-African Americans > 60 (> 60)
[2019-08-09] MEDS: Metoprolol XL (24 HR) Succ 50 MG TAB.ER.24H PO SCH ×2 (08:28→20:16)
[2019-08-09] MEDS: Ascorbic Acid 500 MG TABLET PO SCH ×2 (08:28→16:41)
[2019-08-09] MEDS: Multivit/Ca/Min/Fe/FA 1 TAB TABLET PO SCH (08:29)
[2019-08-09 08:36] LABS: Platelet Estimate Slight Decrease (Normal)
[2019-08-09] MEDS: levETIRAcetam 250 MG TABLET PO SCH ×2 (08:36→20:16)
[2019-08-09] MEDS ORDERED: Aspirin Enteric Coated 81 MG Tablet PO SCH (09:00)
[2019-08-09] MEDS: *HR* Buprenorphine HCl 8 MG TAB.SUBL SL SCH ×2 (09:02→20:15)
[2019-08-09] MEDS ORDERED: Furosemide 40 MG/4 ML VIAL IVP ONE (10:53)
[2019-08-09] MEDS: Furosemide 40 MG TABLET PO SCH (11:33)
[2019-08-09] MEDS: traZODone 50 MG TABLET PO SCH (20:15)
[2019-08-10 01:05] LABS: Basophils % 0.4 %; Eosinophils # 0.1 K/mcL (0.0-0.6); Eosinophils % 0.5 %; Hemoglobin 8.7 g/dL (11.5-15.4); Immature Granulocytes % 0.5 % (0-4); Lymphocytes # 2.2 K/mcL (0.6-4.6); Lymphocytes % 22.2 %; Mean Corpuscular HGB Conc 34.8 g/dL (31.6-35.5); Mean Corpuscular Volume 83.3 fL (83.0-100.0); Mean Platelet Volume 10.3 fL (9.4-12.4); Monocytes # 0.6 K/mcL (0.0-1.3); Monocytes % 5.9 %; Platelet Count 122 K/mcL (140-400); Red Cell Distribution Width 13.9 % (11.5-14.5); Segmented Neutrophils % 70.5 %; White Blood Count 9.9 K/mcL (4.3-11.1)
[2019-08-10 01:22] LABS: BUN/Creatinine Ratio 29 (6-26); Blood Urea Nitrogen 9 mg/dL (8-23); Calcium 7.9 mg/dL (8.6-10.3); Carbon Dioxide 24 mEq/L (23-29); Chloride 105 mEq/L (98-107); Glucose 139 mg/dL (70-105); Osmolality,Calculated 283 (280-300); Potassium 3.5 mEq/L (3.5-5.1); Sodium 136 mEq/L (136-145); eGFR For African Americans > 60 (> 60); eGFR For Non-African Americans > 60 (> 60)
[2019-08-10] MEDS: Isosorbide MONOnitrate (24 HR) 30 MG TAB.ER.24H PO SCH (08:20)
[2019-08-10] MEDS: Metoprolol XL (24 HR) Succ 50 MG TAB.ER.24H PO SCH ×3 (08:20→20:20)
[2019-08-10] MEDS: Multivit/Ca/Min/Fe/FA 1 TAB TABLET PO SCH (08:27)
[2019-08-10] MEDS: Aspirin 81 MG TAB.CHEW PO SCH (08:28)
[2019-08-10] MEDS: Ascorbic Acid 500 MG TABLET PO SCH ×2 (08:28→16:43)
[2019-08-10] MEDS: Furosemide 40 MG TABLET PO SCH (08:29)
[2019-08-10] MEDS: levETIRAcetam 250 MG TABLET PO SCH ×2 (08:31→20:19)
[2019-08-10] MEDS: *HR* Buprenorphine HCl 8 MG TAB.SUBL SL SCH ×2 (08:35→20:20)
[2019-08-10 13:38] LABS: Adenovirus Not Detected (Not Detect); Bordetella Pertussis Not Detected (Not Detect); Chlamydophila pneumoniae Not Detected (Not Detect); Coronavirus 229E Not Detected (Not Detect); Coronavirus HKU1 Not Detected (Not Detect); Coronavirus NL63 Not Detected (Not Detect); Coronavirus OC43 Not Detected (Not Detect); Human Metapneumovirus Not Detected (Not Detect); Human Rhinovirus/Enterovirus Not Detected (Not Detect); Influenza A Subtype 2009 H1 Not Detected (Not Detect); Influenza B Not Detected (Not Detect); Mycoplasma pneumoniae Not Detected (Not Detect); Parainfluenza Virus 1 Not Detected (Not Detect); Parainfluenza Virus 2 Not Detected (Not Detect); Parainfluenza Virus 3 Not Detected (Not Detect); Parainfluenza Virus 4 Not Detected (Not Detect); Respiratory Syncytial Virus Not Detected (Not Detect)
[2019-08-10] MEDS: Albuterol 2.5 MG/3 ML NEBULIZER IH SCH ×2 (14:09→16:15)
[2019-08-10 14:41] LABS: Hematocrit 21.2 % (35.3-44.9); Hemoglobin 7.2 g/dL (11.5-15.4)
[2019-08-10] MEDS ORDERED: Furosemide 20 MG/2 ML VIAL IVP ONE (16:52)
[2019-08-10 16:55] LABS: Clarity,Urine Clear (Clear); Color,Urine Yellow (Yellow)
[2019-08-10 16:56] LABS: Bilirubin,Urine Negative (Negative); Blood,Urine Negative (Negative); Glucose,Urine (UA) Normal (Normal); Ketones,Urine Negative (Negative); Leukocyte Esterase,Urine Negative (Negative); Nitrite,Urine Negative (Negative); Protein,Urine Negative (Neg-Trace); Specific Gravity,Urine 1.009 (1.010-1.025); Urobilinogen,Urine Normal (Normal)
[2019-08-10] MEDS ORDERED: Furosemide 40 MG/4 ML VIAL IVP ONE (17:25)
[2019-08-10] MEDS: predniSONE 20 MG TABLET PO SCH (17:30)
[2019-08-10] MEDS: Doxycycline 100 MG in 0.9 % Sodium Chloride Mini Bag 100 ML IVPB SCH (17:38)
[2019-08-10] MEDS: Ipratropium/Albuterol Neb 3 ML IH SCH ×3 (18:16→23:36)
[2019-08-10] MEDS: traZODone 50 MG TABLET PO SCH (20:20)
[2019-08-10] MEDS: Gabapentin 400 MG CAPSULE PO PRN (20:23)
[2019-08-10] MEDS: Ringers Solution, Lactated 1,000 ML IVC SCH (20:33)
[2019-08-11] MEDS: Ringers Solution, Lactated 1,000 ML IVC SCH ×2 (01:01→20:24)
[2019-08-11 02:01] LABS: Hematocrit 20.4 % (35.3-44.9); Mean Corpuscular HGB Conc 34.3 g/dL (31.6-35.5); Mean Corpuscular Hemoglobin 29.2 pg (28.0-33.3); Mean Platelet Volume 10.2 fL (9.4-12.4); Platelet Count 124 K/mcL (140-400); White Blood Count 9.6 K/mcL (4.3-11.1)
[2019-08-11 02:15] LABS: BUN/Creatinine Ratio 30 (6-26); Blood Urea Nitrogen 9 mg/dL (8-23); Calcium 7.9 mg/dL (8.6-10.3); Carbon Dioxide 25 mEq/L (23-29); Chloride 107 mEq/L (98-107); Glucose 173 mg/dL (70-105); Osmolality,Calculated 289 (280-300); Potassium 3.4 mEq/L (3.5-5.1); Sodium 138 mEq/L (136-145); eGFR For African Americans > 60 (> 60); eGFR For Non-African Americans > 60 (> 60)
[2019-08-11] MEDS: Ipratropium/Albuterol Neb 3 ML IH SCH ×6 (03:43→23:18)
[2019-08-11] MEDS: Doxycycline 100 MG in 0.9 % Sodium Chloride Mini Bag 100 ML IVPB SCH (06:04)
[2019-08-11] MEDS: Aspirin 81 MG TAB.CHEW PO SCH (08:31)
[2019-08-11] MEDS: Multivit/Ca/Min/Fe/FA 1 TAB TABLET PO SCH (08:36)
[2019-08-11] MEDS ORDERED: *HR* OxyCODONE Immed Rel 5 MG TABLET PO PRN (08:37)
[2019-08-11] MEDS: levETIRAcetam 250 MG TABLET PO SCH ×2 (08:44→20:20)
[2019-08-11] MEDS: Ascorbic Acid 500 MG TABLET PO SCH ×2 (08:47→17:46)
[2019-08-11] MEDS: predniSONE 20 MG TABLET PO SCH (08:47)
[2019-08-11] MEDS: Isosorbide MONOnitrate (24 HR) 30 MG TAB.ER.24H PO SCH (08:49)
[2019-08-11] MEDS: *HR* Buprenorphine HCl 8 MG TAB.SUBL SL SCH ×2 (08:50→20:21)
[2019-08-11] MEDS: Furosemide 40 MG TABLET PO SCH (08:51)
[2019-08-11] MEDS: Metoprolol XL (24 HR) Succ 50 MG TAB.ER.24H PO SCH ×2 (08:52→20:23)
[2019-08-11] MEDS ORDERED: 0.9 % Sodium Chloride 250 ML ONE (10:16)
[2019-08-11] MEDS ORDERED: Lidocaine -MPF 1% 5 ML AMPUL INFILT ONE (11:51)
[2019-08-11] MEDS ORDERED: Furosemide 40 MG/4 ML VIAL IVP ONE (12:08)
[2019-08-11] MEDS: traZODone 50 MG TABLET PO SCH (20:23)
[2019-08-11] MEDS: Doxycycline 100 MG CAPSULE PO SCH (20:23)
[2019-08-11 20:46] LABS: Hematocrit 22.5 % (35.3-44.9); Hemoglobin 7.7 g/dL (11.5-15.4)
[2019-08-12 00:38] LABS: Hematocrit 21.3 % (35.3-44.9); Hemoglobin 7.3 g/dL (11.5-15.4)
[2019-08-12] MEDS: Ringers Solution, Lactated 1,000 ML IVC SCH (03:10)
[2019-08-12] MEDS: Gabapentin 400 MG CAPSULE PO PRN (03:21)
[2019-08-12] MEDS: Ipratropium/Albuterol Neb 3 ML IH SCH ×5 (03:43→20:53)
[2019-08-12 04:16] LABS: Basophils % 0.2 %; Eosinophils # 0.2 K/mcL (0.0-0.6); Eosinophils % 1.5 %; Hematocrit 21.5 % (35.3-44.9); Hemoglobin 7.2 g/dL (11.5-15.4); Immature Granulocytes % 0.5 % (0-4); Lymphocytes # 3.3 K/mcL (0.6-4.6); Lymphocytes % 31.9 %; Mean Corpuscular HGB Conc 33.5 g/dL (31.6-35.5); Mean Corpuscular Hemoglobin 29.6 pg (28.0-33.3); Mean Corpuscular Volume 88.5 fL (83.0-100.0); Monocytes # 0.4 K/mcL (0.0-1.3); Monocytes % 4.1 %; Neutrophils # 6.3 K/mcL (1.6-8.9); Nucleated Red Blood Cells 0.2 /100 WBC (0); Platelet Count 125 K/mcL (140-400); Red Blood Count 2.43 M/mcL (3.82-4.97); Red Cell Distribution Width 14.6 % (11.5-14.5); Segmented Neutrophils % 61.8 %; White Blood Count 10.2 K/mcL (4.3-11.1)
[2019-08-12 04:16] LABS: Hematocrit 21.4 % (35.3-44.9); Hemoglobin 7.1 g/dL (11.5-15.4)
[2019-08-12 04:36] LABS: BUN/Creatinine Ratio 39 (6-26); Blood Urea Nitrogen 13 mg/dL (8-23); Calcium 7.7 mg/dL (8.6-10.3); Carbon Dioxide 24 mEq/L (23-29); Chloride 108 mEq/L (98-107); Glucose 98 mg/dL (70-105); Osmolality,Calculated 284 (280-300); Potassium 3.8 mEq/L (3.5-5.1); Sodium 137 mEq/L (136-145); eGFR For African Americans > 60 (> 60); eGFR For Non-African Americans > 60 (> 60)
[2019-08-12] MEDS: Doxycycline 100 MG CAPSULE PO SCH ×2 (05:52→18:00)
[2019-08-12] MEDS ORDERED: 0.9 % Sodium Chloride 250 ML ONE (06:26)
[2019-08-12] MEDS: predniSONE 20 MG TABLET PO SCH (08:00)
[2019-08-12] MEDS: Multivit/Ca/Min/Fe/FA 1 TAB TABLET PO SCH (08:01)
[2019-08-12] MEDS: Aspirin 81 MG TAB.CHEW PO SCH (08:01)
[2019-08-12] MEDS: Furosemide 40 MG TABLET PO SCH (08:02)
[2019-08-12] MEDS: Isosorbide MONOnitrate (24 HR) 30 MG TAB.ER.24H PO SCH (08:03)
[2019-08-12] MEDS: *HR* Buprenorphine HCl 8 MG TAB.SUBL SL SCH ×2 (08:04→20:00)
[2019-08-12] MEDS: Ascorbic Acid 500 MG TABLET PO SCH ×2 (08:05→18:01)
[2019-08-12] MEDS: levETIRAcetam 250 MG TABLET PO SCH ×2 (08:18→20:00)
[2019-08-12] MEDS ORDERED: Furosemide 40 MG/4 ML VIAL IVP ONE (10:12)
[2019-08-12 12:13] LABS: Hematocrit 28.6 % (35.3-44.9); Hemoglobin 9.7 g/dL (11.5-15.4)
[2019-08-12] MEDS ORDERED: Aminoglycoside Consult 1 EACH MC ONE (12:49)
[2019-08-12] MEDS: traZODone 50 MG TABLET PO SCH (20:00)
[2019-08-13] MEDS: Ipratropium/Albuterol Neb 3 ML IH SCH ×3 (00:45→07:25)
[2019-08-13 06:25] LABS: Basophils % 0.3 %; Eosinophils # 0.4 K/mcL (0.0-0.6); Eosinophils % 4.4 %; Hematocrit 27.4 % (35.3-44.9); Hemoglobin 9.2 g/dL (11.5-15.4); Immature Granulocytes % 0.8 % (0-4); Lymphocytes # 3.3 K/mcL (0.6-4.6); Lymphocytes % 36.6 %; Mean Corpuscular HGB Conc 33.6 g/dL (31.6-35.5); Mean Corpuscular Hemoglobin 29.9 pg (28.0-33.3); Mean Platelet Volume 9.8 fL (9.4-12.4); Monocytes # 0.4 K/mcL (0.0-1.3); Monocytes % 4.7 %; Neutrophils # 4.8 K/mcL (1.6-8.9); Platelet Count 178 K/mcL (140-400); Red Blood Count 3.08 M/mcL (3.82-4.97); Red Cell Distribution Width 15.5 % (11.5-14.5); Segmented Neutrophils % 53.2 %; White Blood Count 9.1 K/mcL (4.3-11.1)
[2019-08-13 06:40] LABS: BUN/Creatinine Ratio 41 (6-26); Blood Urea Nitrogen 14 mg/dL (8-23); Calcium 8.4 mg/dL (8.6-10.3); Carbon Dioxide 26 mEq/L (23-29); Chloride 106 mEq/L (98-107); Glucose 97 mg/dL (70-105); Osmolality,Calculated 282 (280-300); Potassium 3.4 mEq/L (3.5-5.1); Sodium 136 mEq/L (136-145); eGFR For African Americans > 60 (> 60); eGFR For Non-African Americans > 60 (> 60)
[2019-08-13 07:30] VITALS: BP 156/77
[2019-08-13] MEDS: predniSONE 20 MG TABLET PO SCH (09:53)
[2019-08-13] MEDS: Ascorbic Acid 500 MG TABLET PO SCH (09:53)
[2019-08-13] MEDS: Aspirin 81 MG TAB.CHEW PO SCH (09:54)
[2019-08-13] MEDS: Multivit/Ca/Min/Fe/FA 1 TAB TABLET PO SCH (09:54)
[2019-08-13] MEDS: Furosemide 40 MG TABLET PO SCH (09:54)
[2019-08-13] MEDS: *HR* Buprenorphine HCl 8 MG TAB.SUBL SL SCH (09:54)
[2019-08-13] MEDS: Doxycycline 100 MG CAPSULE PO SCH (09:54)
[2019-08-13] MEDS: levETIRAcetam 250 MG TABLET PO SCH (09:55)
[2019-08-13] MEDS: Isosorbide MONOnitrate (24 HR) 30 MG TAB.ER.24H PO SCH (09:55)
== END 2019-08-13 12:50 | disposition home health service (06) | DRG 301 ==
LOC: SAMDAY 07:53 → 3NENU 18:42
PROVIDERS: ADMIT Orthopaedic Surgery; ATTEND Orthopaedic Surgery

== ENCOUNTER 2020-09-22 03:22 | Observation (INO) ==
[2020-09-22] MEDS ORDERED: Nitroglycerin 1,000 MCG/5 ML VIAL IV ONE (03:54)
[2020-09-22] MEDS ORDERED: Ipratropium/Albuterol Neb 3 ML IH ONE (03:54)
[2020-09-22] MEDS ORDERED: 0.9 % Sodium Chloride 1,000 ML ONE (03:54)
[2020-09-22] MEDS ORDERED: ISOVUE-370 200 ML INFUS..BTL ONE (03:54)
[2020-09-22] MEDS ORDERED: *HR* Heparin 10,000 UNIT/10 ML VIAL ONE (03:54)
[2020-09-22] MEDS ORDERED: methylPREDNISolone 125 MG/2 ML VIAL IVP ONE (03:54)
[2020-09-22] MEDS ORDERED: Heparin 1,000 UNITS/500 mL 0 ML ONE (03:54)
[2020-09-22 03:55] LABS: Basophils # 0.1 K/mcL (0.0-0.2); Basophils % 0.2 %; Eosinophils # 0.1 K/mcL (0.0-0.6); Eosinophils % 0.3 %; Hematocrit 42.3 % (35.3-44.9); Hemoglobin 13.5 g/dL (11.5-15.4); Immature Granulocytes % 0.5 % (0-4); Lymphocytes # 1.5 K/mcL (0.6-4.6); Lymphocytes % 7.2 %; Mean Corpuscular HGB Conc 31.9 g/dL (31.6-35.5); Mean Corpuscular Hemoglobin 27.6 pg (28.0-33.3); Mean Corpuscular Volume 86.5 fL (83.0-100.0); Mean Platelet Volume 9.1 fL (9.4-12.4); Monocytes # 0.7 K/mcL (0.0-1.3); Monocytes % 3.6 %; Platelet Count 222 K/mcL (140-400); Red Blood Count 4.89 M/mcL (3.82-4.97); Red Cell Distribution Width 13.4 % (11.5-14.5); Segmented Neutrophils % 88.2 %; White Blood Count 20.4 K/mcL (4.3-11.1)
[2020-09-22] MEDS ORDERED: *HR* Midazolam HCl 2 MG/2 ML VIAL ONE (04:00)
[2020-09-22] MEDS ORDERED: *HR* FentaNYL (PF) 100 MCG/2 ML VIAL ONE ×2 (04:00→04:11)
[2020-09-22] MEDS ORDERED: Tirofiban 12.5 MG/250ML 0 MG/0 ML BAG ONE (04:00)
[2020-09-22 04:08] LABS: INR 1.2; Prothrombin Time 14.1 Seconds (9.4-12.1)
[2020-09-22 04:11] LABS: Activated Partial Thrombo Time 29.7 Seconds (26.0-36.0)
[2020-09-22] MEDS ORDERED: *HR* FentaNYL (PF) 100 MCG/2 ML VIAL IVP ONE (04:18)
[2020-09-22 04:19] LABS: BUN/Creatinine Ratio 21 (6-26); Blood Urea Nitrogen 11 mg/dL (8-23); Calcium 8.5 mg/dL (8.6-10.3); Carbon Dioxide 23 mEq/L (23-29); Chloride 99 mEq/L (98-107); Glucose 150 mg/dL (70-105); Magnesium 1.3 mg/dL (1.6-2.6); Osmolality,Calculated 272 (280-300); Potassium 3.5 mEq/L (3.5-5.1); Sodium 130 mEq/L (136-145); eGFR For African Americans > 60 (> 60); eGFR For Non-African Americans > 60 (> 60)
[2020-09-22 04:20] LABS: Troponin I < 0.03 ng/mL (< 0.04)
[2020-09-22] MEDS ORDERED: Isovue-370 500 ML BOTTLE IVP ONE (04:25)
[2020-09-22] MEDS ORDERED: Azithromycin 500 MG in 0.9 % Sodium Chloride 250 ML IVPB ONE (06:00)
[2020-09-22] MEDS ORDERED: cefTRIAXone 1,000 MG in Water for inj. (sterile) 10 ML IVP ONE ×2 (06:00→08:45)
[2020-09-22] MEDS ORDERED: Ondansetron 4 MG/2 ML VIAL IVP PRN (07:41)
[2020-09-22] MEDS ORDERED: Naloxone 0.4 MG/ML INJ IVP PRN (07:41)
[2020-09-22] MEDS ORDERED: Albuterol 2.5 MG/3 ML NEBULIZER IH PRN (08:34)
[2020-09-22] MEDS: 0.9 % Sodium Chloride 1,000 ML IVC SCH ×2 (09:17→09:47)
[2020-09-22] MEDS: *HR* Enoxaparin 40 MG/0.4 ML SYRINGE SQ SCH (09:17)
[2020-09-22] MEDS: Ipratropium/Albuterol Neb 3 ML IH SCH ×3 (10:45→22:01)
[2020-09-22] MEDS ORDERED: Perflutren Lipid Microsphere 1.3 ML in 0.9 % Sodium Chloride 8.7 ML IVP PRN (11:53)
[2020-09-22] MEDS ORDERED: Nicotine 14 MG PATCH.TD24 TD PRN (11:55)
[2020-09-22] MEDS: MethylPREDNISolone 40 MG/ML VIAL IVP SCH ×3 (12:56→23:54)
[2020-09-22] MEDS ORDERED: Gabapentin 300 MG CAPSULE PO PRN (15:53)
[2020-09-22] MEDS ORDERED: Nitroglycerin 0.4 MG TAB.SUBL SL PRN (15:53)
[2020-09-22] MEDS ORDERED: traZODone 50 MG TABLET PO PRN (15:53)
[2020-09-22] MEDS ORDERED: Ketorolac 15 MG/ML VIAL IVP PRN (17:21)
[2020-09-22] MEDS ORDERED: *HR* Metoprolol 5 MG/5 ML VIAL IVP ONE (20:30)
[2020-09-22] MEDS: levETIRAcetam 250 MG TABLET PO SCH (21:23)
[2020-09-22] MEDS: Budesonide/Formoterol 160/4.5 1 PUFF INH IH SCH (22:01)
[2020-09-23] MEDS: Ipratropium/Albuterol Neb 3 ML IH SCH ×4 (04:19→22:12)
[2020-09-23] MEDS: MethylPREDNISolone 40 MG/ML VIAL IVP SCH ×2 (05:02→12:05)
[2020-09-23 06:20] LABS: Hematocrit 40.5 % (35.3-44.9); Hemoglobin 13.5 g/dL (11.5-15.4); Mean Corpuscular HGB Conc 33.3 g/dL (31.6-35.5); Mean Corpuscular Hemoglobin 28.6 pg (28.0-33.3); Mean Corpuscular Volume 85.8 fL (83.0-100.0); Mean Platelet Volume 9.4 fL (9.4-12.4); Platelet Count 189 K/mcL (140-400); Red Blood Count 4.72 M/mcL (3.82-4.97); Red Cell Distribution Width 13.5 % (11.5-14.5); White Blood Count 11.5 K/mcL (4.3-11.1)
[2020-09-23 06:30] LABS: BUN/Creatinine Ratio 29 (6-26); Blood Urea Nitrogen 11 mg/dL (8-23); Calcium 9.1 mg/dL (8.6-10.3); Carbon Dioxide 22 mEq/L (23-29); Chloride 107 mEq/L (98-107); Glucose 146 mg/dL (70-105); Osmolality,Calculated 286 (280-300); Potassium 3.6 mEq/L (3.5-5.1); Sodium 137 mEq/L (136-145); eGFR For African Americans > 60 (> 60); eGFR For Non-African Americans > 60 (> 60)
[2020-09-23] MEDS: Aspirin 325 MG TABLET PO SCH (07:30)
[2020-09-23] MEDS: Metoprolol XL (24 HR) Succ 50 MG TAB.ER.24H PO SCH (07:30)
[2020-09-23] MEDS: levETIRAcetam 250 MG TABLET PO SCH ×2 (07:30→23:46)
[2020-09-23] MEDS: *HR* Buprenorphine HCl 8 MG TAB.SUBL SL SCH (07:30)
[2020-09-23] MEDS: Furosemide 40 MG TABLET PO SCH (07:30)
[2020-09-23] MEDS: Isosorbide MONOnitrate (24 HR) 30 MG TAB.ER.24H PO SCH (07:30)
[2020-09-23] MEDS: Azithromycin 500 MG in 0.9 % Sodium Chloride 250 ML IVPB SCH (07:31)
[2020-09-23] MEDS: cefTRIAXone 2,000 MG in Water for inj. (sterile) 20 ML IVP SCH (07:31)
[2020-09-23] MEDS: *HR* Enoxaparin 40 MG/0.4 ML SYRINGE SQ SCH (07:32)
[2020-09-23] MEDS: *HR* LORazepam 2 MG/ML VIAL IVP PRN ×2 (08:00→21:30)
[2020-09-23] MEDS ORDERED: Isosorbide MONOnitrate (24 HR) 30 MG TAB.ER.24H PO SCH (09:00)
[2020-09-23] MEDS: Budesonide/Formoterol 160/4.5 1 PUFF INH IH SCH ×2 (11:06→22:12)
[2020-09-24 01:44] LABS: Basophils % 0.2 %; Eosinophils % 0.4 %; Hematocrit 37.8 % (35.3-44.9); Hemoglobin 12.2 g/dL (11.5-15.4); Immature Granulocytes % 0.3 % (0-4); Lymphocytes % 32.4 %; Mean Corpuscular HGB Conc 32.3 g/dL (31.6-35.5); Mean Corpuscular Hemoglobin 27.8 pg (28.0-33.3); Mean Corpuscular Volume 86.1 fL (83.0-100.0); Mean Platelet Volume 9.6 fL (9.4-12.4); Monocytes # 0.4 K/mcL (0.0-1.3); Monocytes % 4.7 %; Neutrophils # 5.7 K/mcL (1.6-8.9); Platelet Count 201 K/mcL (140-400); Red Blood Count 4.39 M/mcL (3.82-4.97); Red Cell Distribution Width 13.8 % (11.5-14.5); White Blood Count 9.2 K/mcL (4.3-11.1)
[2020-09-24 02:01] LABS: BUN/Creatinine Ratio 46 (6-26); Blood Urea Nitrogen 23 mg/dL (8-23); Calcium 8.9 mg/dL (8.6-10.3); Carbon Dioxide 24 mEq/L (23-29); Chloride 107 mEq/L (98-107); Glucose 105 mg/dL (70-105); Magnesium 1.9 mg/dL (1.6-2.6); Osmolality,Calculated 288 (280-300); Potassium 3.8 mEq/L (3.5-5.1); Sodium 137 mEq/L (136-145); eGFR For African Americans > 60 (> 60); eGFR For Non-African Americans > 60 (> 60)
[2020-09-24] MEDS: Ipratropium/Albuterol Neb 3 ML IH SCH ×2 (03:59→09:55)
[2020-09-24] MEDS: Azithromycin 500 MG in 0.9 % Sodium Chloride 250 ML IVPB SCH (08:01)
[2020-09-24] MEDS: *HR* Enoxaparin 40 MG/0.4 ML SYRINGE SQ SCH (08:01)
[2020-09-24] MEDS: cefTRIAXone 2,000 MG in Water for inj. (sterile) 20 ML IVP SCH (08:02)
[2020-09-24] MEDS: Isosorbide MONOnitrate (24 HR) 30 MG TAB.ER.24H PO SCH (08:02)
[2020-09-24] MEDS: *HR* Buprenorphine HCl 8 MG TAB.SUBL SL SCH (08:02)
[2020-09-24] MEDS: Furosemide 40 MG TABLET PO SCH (08:03)
[2020-09-24] MEDS: levETIRAcetam 250 MG TABLET PO SCH (08:03)
[2020-09-24] MEDS: Metoprolol XL (24 HR) Succ 50 MG TAB.ER.24H PO SCH (08:03)
[2020-09-24] MEDS: Aspirin 325 MG TABLET PO SCH (08:04)
[2020-09-24] MEDS: *HR* LORazepam 2 MG/ML VIAL IVP PRN (08:12)
[2020-09-24] MEDS ORDERED: predniSONE 20 MG TABLET PO SCH (09:00)
[2020-09-24] MEDS ORDERED: amLODIPine 5 MG TABLET PO SCH (09:00)
[2020-09-24] MEDS: Budesonide/Formoterol 160/4.5 1 PUFF INH IH SCH (09:54)
[2020-09-24 11:56] VITALS: BP 135/67
== END 2020-09-24 13:36 | disposition home or self-care (01) ==
LOC: EMEROOARM 03:22 → 3ANU 03:22 → SUATTDRO 07:39 → 3ANU 08:15
PROVIDERS: ADMIT Internal Medicine; ATTEND Pharmacist

== ENCOUNTER 2021-01-09 12:50 | Inpatient (IN) ==
[2021-01-09] MEDS ORDERED: *HR* HYDROcodone/Acet 5/325 mg TABLET PO ONE (13:23)
[2021-01-09 16:57] LABS: Basophils % 0.4 %; Eosinophils # 0.4 K/mcL (0.0-0.6); Eosinophils % 3.9 %; Hematocrit 38.5 % (35.3-44.9); Hemoglobin 12.3 g/dL (11.5-15.4); Immature Granulocytes % 0.6 % (0-4); Lymphocytes # 2.4 K/mcL (0.6-4.6); Lymphocytes % 25.5 %; Mean Corpuscular HGB Conc 31.9 g/dL (31.6-35.5); Mean Corpuscular Hemoglobin 27.1 pg (28.0-33.3); Mean Corpuscular Volume 84.8 fL (83.0-100.0); Mean Platelet Volume 8.8 fL (9.4-12.4); Monocytes # 0.4 K/mcL (0.0-1.3); Monocytes % 4.7 %; Neutrophils # 6.1 K/mcL (1.6-8.9); Platelet Count 234 K/mcL (140-400); Red Blood Count 4.54 M/mcL (3.82-4.97); Red Cell Distribution Width 14.5 % (11.5-14.5); Segmented Neutrophils % 64.9 %; White Blood Count 9.4 K/mcL (4.3-11.1)
[2021-01-09 16:59] LABS: INR 1.2; Prothrombin Time 13.8 Seconds (9.4-12.1)
[2021-01-09 17:02] LABS: Activated Partial Thrombo Time 33.2 Seconds (26.0-36.0)
[2021-01-09] MEDS ORDERED: Naloxone 0.4 MG/ML INJ IVP PRN (17:07)
[2021-01-09] MEDS ORDERED: Ondansetron 4 MG/2 ML VIAL IVP PRN (17:07)
[2021-01-09] MEDS ORDERED: *HR* LORazepam 0.5 MG TABLET PO PRN (17:09)
[2021-01-09] MEDS ORDERED: Nitroglycerin 0.4 MG TAB.SUBL SL PRN (17:09)
[2021-01-09] MEDS ORDERED: Ipratropium/Albuterol Neb 3 ML IH PRN (17:27)
[2021-01-09 17:38] LABS: BUN/Creatinine Ratio 16 (6-26); Blood Urea Nitrogen 7 mg/dL (8-23); Calcium 8.9 mg/dL (8.6-10.3); Carbon Dioxide 28 mEq/L (23-29); Chloride 102 mEq/L (98-107); Glucose 89 mg/dL (70-105); Osmolality,Calculated 279 (280-300); Potassium 3.7 mEq/L (3.5-5.1); Sodium 136 mEq/L (136-145); eGFR For African Americans > 60 (> 60); eGFR For Non-African Americans > 60 (> 60)
[2021-01-09 17:52] LABS: Troponin I < 0.03 ng/mL (< 0.04)
[2021-01-09 18:09] LABS: Amorphous Sediment,Urine Few per hpf (None-Few); Bacteria,Urine Few per hpf (None-Few); Bilirubin,Urine Negative (Negative); Blood,Urine Small (Negative); Clarity,Urine Turbid (Clear); Color,Urine Yellow (Yellow); Glucose,Urine (UA) Normal (Normal); Ketones,Urine Negative (Negative); Leukocyte Esterase,Urine Large (Negative); Nitrite,Urine Negative (Negative); PH,Urine 6.5 pH Units (5.0-8.0); Protein,Urine Negative (Neg-Trace); Specific Gravity,Urine 1.008 (1.010-1.025); Squamous Epithelial Cell,Urine Few per hpf (None-Few); Urobilinogen,Urine Normal (Normal); WBC,Urine 30-50 per hpf (0-3)
[2021-01-09] MEDS: *HR* Heparin 5,000 UNIT/ML VIAL SQ SCH (18:20)
[2021-01-09] MEDS: levETIRAcetam 250 MG TABLET PO SCH (18:21)
[2021-01-09] MEDS: Nicotine 21 MG PATCH.TD24 TD SCH (18:21)
[2021-01-10 04:16] LABS: Basophils % 0.4 %; Eosinophils # 0.5 K/mcL (0.0-0.6); Eosinophils % 6.5 %; Hematocrit 38.9 % (35.3-44.9); Hemoglobin 12.5 g/dL (11.5-15.4); Immature Granulocytes % 0.5 % (0-4); Lymphocytes # 2.2 K/mcL (0.6-4.6); Lymphocytes % 29.9 %; Mean Corpuscular HGB Conc 32.1 g/dL (31.6-35.5); Mean Corpuscular Hemoglobin 27.1 pg (28.0-33.3); Mean Corpuscular Volume 84.2 fL (83.0-100.0); Mean Platelet Volume 8.8 fL (9.4-12.4); Monocytes # 0.4 K/mcL (0.0-1.3); Monocytes % 5.7 %; Neutrophils # 4.2 K/mcL (1.6-8.9); Platelet Count 211 K/mcL (140-400); Red Blood Count 4.62 M/mcL (3.82-4.97); Red Cell Distribution Width 14.6 % (11.5-14.5); White Blood Count 7.4 K/mcL (4.3-11.1)
[2021-01-10 04:23] LABS: INR 1.3; Prothrombin Time 14.4 Seconds (9.4-12.1)
[2021-01-10 04:31] LABS: Carbon Dioxide 27 mEq/L (23-29); Chloride 103 mEq/L (98-107); Glucose 96 mg/dL (70-105); Potassium 3.6 mEq/L (3.5-5.1); Sodium 136 mEq/L (136-145); eGFR For African Americans > 60 (> 60); eGFR For Non-African Americans > 60 (> 60)
[2021-01-10 05:01] LABS: BUN/Creatinine Ratio 24 (6-26); Blood Urea Nitrogen 8 mg/dL (8-23); Calcium 8.8 mg/dL (8.6-10.3); Osmolality,Calculated 280 (280-300)
[2021-01-10] MEDS: *HR* Heparin 5,000 UNIT/ML VIAL SQ SCH ×2 (05:30→19:55)
[2021-01-10] MEDS: levETIRAcetam 250 MG TABLET PO SCH ×3 (05:34→23:54)
[2021-01-10] MEDS ORDERED: Metoprolol XL (24 HR) Succ 50 MG TAB.ER.24H PO SCH (09:00)
[2021-01-10] MEDS ORDERED: cefTRIAXone 1,000 MG in Water for inj. (sterile) 10 ML IVP SCH (09:00)
[2021-01-10] MEDS ORDERED: Metoprolol XL (24 HR) Succ 25 MG TAB.ER.24H PO SCH (09:00)
[2021-01-10] MEDS ORDERED: *HR* HYDROmorphone (PF) 1 MG/ML SYRINGE IVP ONE (10:45)
[2021-01-10] MEDS ORDERED: traZODone 50 MG TABLET PO PRN ×2 (14:04→22:20)
[2021-01-10] MEDS ORDERED: Gabapentin 300 MG CAPSULE PO PRN ×2 (14:04→22:20)
[2021-01-10] MEDS ORDERED: *HR* HYDROmorphone (PF) 1 MG/ML SYRINGE IVP PRN ×4 (14:24→23:58)
[2021-01-10] MEDS ORDERED: Lidocaine -MPF 2% 2 ML VIAL ONE (17:18)
[2021-01-10] MEDS ORDERED: Ondansetron 4 MG/2 ML VIAL ONE ×2 (17:18→19:34)
[2021-01-10] MEDS ORDERED: *HR* FentaNYL (PF) 100 MCG/2 ML VIAL ONE (17:18)
[2021-01-10] MEDS ORDERED: *HR* Propofol 200 MG/20 ML VIAL IVP ONE (17:18)
[2021-01-10] MEDS ORDERED: *HR* Metoprolol 5 MG/5 ML VIAL IVP ONE (19:38)
[2021-01-10] MEDS ORDERED: Naloxone 0.4 MG/ML INJ IVP PRN ×3 (19:48→22:20)
[2021-01-10] MEDS ORDERED: *HR* FentaNYL (PF) 100 MCG/2 ML VIAL IVP PRN ×2 (19:48→22:20)
[2021-01-10] MEDS ORDERED: *HR* Labetalol 20 MG/4 ML SYRINGE IVP PRN ×2 (19:48→22:20)
[2021-01-10] MEDS ORDERED: Ondansetron 4 MG/2 ML VIAL IVP PRN ×3 (19:48→22:20)
[2021-01-10] MEDS ORDERED: Albuterol 2.5 MG/3 ML NEBULIZER IH PRN ×2 (19:48→22:20)
[2021-01-10] MEDS ORDERED: Nitroglycerin 0.4 MG TAB.SUBL SL PRN ×3 (19:48→22:20)
[2021-01-10] MEDS ORDERED: Acetaminophen IV 1,000 MG/100 ML BAG IVPB ONE (19:54)
[2021-01-10] MEDS: Nicotine 21 MG PATCH.TD24 TD SCH (19:55)
[2021-01-10] MEDS ORDERED: *HR* OxyCODONE Immed Rel 5 MG TABLET PO PRN (20:56)
[2021-01-10] MEDS ORDERED: Budesonide/Formoterol 160/4.5 1 PUFF INH IH SCH (21:00)
[2021-01-10] MEDS ORDERED: Tiotropium 10 INH DOSE IH SCH (21:00)
[2021-01-10] MEDS: *HR* HYDROmorphone (PF) 1 MG/ML SYRINGE IVP PRN ×3 (21:17→21:36)
[2021-01-11] MEDS ORDERED: CeFAZolin 2 GM/120 ML BAG IVPB SCH
[2021-01-11] MEDS: *HR* OxyCODONE Immed Rel 5 MG TABLET PO PRN ×2 (00:04→06:35)
[2021-01-11] MEDS: CeFAZolin 2 GM/120 ML BAG IVPB SCH ×2 (00:06→09:09)
[2021-01-11] MEDS: *HR* Heparin 5,000 UNIT/ML VIAL SQ SCH ×2 (05:34→18:10)
[2021-01-11 08:09] LABS: Basophils # 0.1 K/mcL (0.0-0.2); Basophils % 0.3 %; Eosinophils # 0.1 K/mcL (0.0-0.6); Eosinophils % 0.3 %; Hematocrit 28.1 % (35.3-44.9); Hemoglobin 8.7 g/dL (11.5-15.4); Immature Granulocytes % 0.5 % (0-4); Lymphocytes # 3.7 K/mcL (0.6-4.6); Lymphocytes % 24.5 %; Mean Corpuscular Volume 87.3 fL (83.0-100.0); Mean Platelet Volume 9.2 fL (9.4-12.4); Monocytes % 6.3 %; Neutrophils # 10.2 K/mcL (1.6-8.9); Platelet Count 253 K/mcL (140-400); Red Blood Count 3.22 M/mcL (3.82-4.97); Red Cell Distribution Width 14.7 % (11.5-14.5); Segmented Neutrophils % 68.1 %
[2021-01-11 08:25] LABS: BUN/Creatinine Ratio 22 (6-26); Blood Urea Nitrogen 7 mg/dL (8-23); Carbon Dioxide 24 mEq/L (23-29); Chloride 106 mEq/L (98-107); Glucose 110 mg/dL (70-105); Osmolality,Calculated 277 (280-300); Potassium 4.1 mEq/L (3.5-5.1); Sodium 134 mEq/L (136-145); eGFR For African Americans > 60 (> 60); eGFR For Non-African Americans > 60 (> 60)
[2021-01-11] MEDS: Budesonide/Formoterol 160/4.5 1 PUFF INH IH SCH ×2 (08:34→22:58)
[2021-01-11] MEDS: Tiotropium 10 INH DOSE IH SCH ×2 (08:35→22:58)
[2021-01-11] MEDS: Ipratropium/Albuterol Neb 3 ML IH PRN (08:35)
[2021-01-11] MEDS ORDERED: Aspirin 325 MG TABLET PO SCH (09:00)
[2021-01-11] MEDS ORDERED: Isosorbide MONOnitrate (24 HR) 30 MG TAB.ER.24H PO SCH (09:00)
[2021-01-11] MEDS ORDERED: Furosemide 40 MG TABLET PO SCH (09:00)
[2021-01-11] MEDS ORDERED: Metoprolol XL (24 HR) Succ 50 MG TAB.ER.24H PO SCH ×2 (09:00)
[2021-01-11] MEDS ORDERED: amLODIPine 5 MG TABLET PO SCH (09:00)
[2021-01-11] MEDS: Aspirin 325 MG TABLET PO SCH (09:07)
[2021-01-11] MEDS: Metoprolol XL (24 HR) Succ 50 MG TAB.ER.24H PO SCH (09:07)
[2021-01-11] MEDS: Furosemide 40 MG TABLET PO SCH (09:08)
[2021-01-11] MEDS: amLODIPine 5 MG TABLET PO SCH (09:08)
[2021-01-11] MEDS: Nicotine 21 MG PATCH.TD24 TD SCH (09:08)
[2021-01-11] MEDS: Isosorbide MONOnitrate (24 HR) 30 MG TAB.ER.24H PO SCH (09:08)
[2021-01-11] MEDS: Ketorolac 15 MG/ML VIAL IVP PRN ×2 (11:11→20:11)
[2021-01-11] MEDS: levETIRAcetam 250 MG TABLET PO SCH ×2 (13:29→22:54)
[2021-01-11] MEDS: *HR* HYDROmorphone (PF) 1 MG/ML SYRINGE IVP PRN ×3 (18:10→22:53)
[2021-01-11 23:35] LABS: Hematocrit 22.3 % (35.3-44.9)
[2021-01-12 03:18] LABS: Hematocrit 21.5 % (35.3-44.9); Hemoglobin 7.1 g/dL (11.5-15.4)
[2021-01-12 03:19] LABS: Hematocrit 22.4 % (35.3-44.9); Hemoglobin 7.2 g/dL (11.5-15.4); Mean Corpuscular HGB Conc 32.1 g/dL (31.6-35.5); Mean Corpuscular Hemoglobin 27.6 pg (28.0-33.3); Mean Corpuscular Volume 85.8 fL (83.0-100.0); Mean Platelet Volume 9.4 fL (9.4-12.4); Platelet Count 193 K/mcL (140-400); Red Blood Count 2.61 M/mcL (3.82-4.97); Red Cell Distribution Width 14.9 % (11.5-14.5); White Blood Count 8.7 K/mcL (4.3-11.1)
[2021-01-12 03:37] LABS: BUN/Creatinine Ratio 23 (6-26); Blood Urea Nitrogen 9 mg/dL (8-23); Calcium 7.9 mg/dL (8.6-10.3); Carbon Dioxide 24 mEq/L (23-29); Chloride 104 mEq/L (98-107); Glucose 119 mg/dL (70-105); Osmolality,Calculated 278 (280-300); Sodium 134 mEq/L (136-145); eGFR For African Americans > 60 (> 60); eGFR For Non-African Americans > 60 (> 60)
[2021-01-12] MEDS: *HR* HYDROmorphone (PF) 1 MG/ML SYRINGE IVP PRN ×4 (04:19→22:27)
[2021-01-12] MEDS: *HR* Heparin 5,000 UNIT/ML VIAL SQ SCH ×2 (05:16→17:33)
[2021-01-12] MEDS: Tiotropium 10 INH DOSE IH SCH ×2 (08:18→20:09)
[2021-01-12] MEDS: Budesonide/Formoterol 160/4.5 1 PUFF INH IH SCH ×2 (08:19→20:08)
[2021-01-12] MEDS: Furosemide 40 MG TABLET PO SCH (08:53)
[2021-01-12] MEDS: Metoprolol XL (24 HR) Succ 50 MG TAB.ER.24H PO SCH (08:55)
[2021-01-12] MEDS: amLODIPine 5 MG TABLET PO SCH (08:55)
[2021-01-12] MEDS: Isosorbide MONOnitrate (24 HR) 30 MG TAB.ER.24H PO SCH (08:56)
[2021-01-12] MEDS: Nicotine 21 MG PATCH.TD24 TD SCH (08:56)
[2021-01-12] MEDS: Aspirin 325 MG TABLET PO SCH (08:57)
[2021-01-12] MEDS: cefTRIAXone 1,000 MG in Water for inj. (sterile) 10 ML IVP SCH (08:58)
[2021-01-12] MEDS ORDERED: 0.9 % Sodium Chloride 250 ML ONE (10:39)
[2021-01-12] MEDS: levETIRAcetam 250 MG TABLET PO SCH (12:40)
[2021-01-12] MEDS: *HR* LORazepam 0.5 MG TABLET PO PRN (15:10)
[2021-01-12] MEDS: Gabapentin 300 MG CAPSULE PO SCH ×2 (15:10→20:15)
[2021-01-12] MEDS: Ipratropium/Albuterol Neb 3 ML IH PRN (20:07)
[2021-01-13] MEDS: *HR* LORazepam 0.5 MG TABLET PO PRN ×3 (00:20→19:55)
[2021-01-13] MEDS: levETIRAcetam 250 MG TABLET PO SCH ×3 (00:20→21:58)
[2021-01-13] MEDS: *HR* Heparin 5,000 UNIT/ML VIAL SQ SCH ×2 (05:08→17:37)
[2021-01-13] MEDS: Budesonide/Formoterol 160/4.5 1 PUFF INH IH SCH ×2 (07:45→20:17)
[2021-01-13] MEDS: Tiotropium 10 INH DOSE IH SCH ×2 (07:45→21:53)
[2021-01-13] MEDS: Ipratropium/Albuterol Neb 3 ML IH PRN (07:49)
[2021-01-13] MEDS: Isosorbide MONOnitrate (24 HR) 30 MG TAB.ER.24H PO SCH (08:33)
[2021-01-13] MEDS: Nicotine 21 MG PATCH.TD24 TD SCH (08:34)
[2021-01-13] MEDS: Metoprolol XL (24 HR) Succ 50 MG TAB.ER.24H PO SCH (08:34)
[2021-01-13] MEDS: Gabapentin 300 MG CAPSULE PO SCH ×3 (08:34→19:56)
[2021-01-13] MEDS: Furosemide 40 MG TABLET PO SCH (08:35)
[2021-01-13] MEDS: Aspirin 325 MG TABLET PO SCH (08:35)
[2021-01-13] MEDS: amLODIPine 5 MG TABLET PO SCH (08:36)
[2021-01-13] MEDS: cefTRIAXone 1,000 MG in Water for inj. (sterile) 10 ML IVP SCH ×2 (08:37→12:04)
[2021-01-13] MEDS: *HR* HYDROmorphone 2 MG TABLET PO PRN ×3 (12:10→21:55)
[2021-01-13] MEDS: Nitrofurantoin (BID) 100 MG CAPSULE PO SCH (17:37)
[2021-01-14] MEDS: *HR* HYDROmorphone 2 MG TABLET PO PRN ×3 (02:03→21:28)
[2021-01-14 02:21] LABS: Hemoglobin 8.2 g/dL (11.5-15.4); Mean Corpuscular HGB Conc 32.8 g/dL (31.6-35.5); Mean Corpuscular Hemoglobin 28.7 pg (28.0-33.3); Mean Corpuscular Volume 87.4 fL (83.0-100.0); Mean Platelet Volume 9.7 fL (9.4-12.4); Platelet Count 219 K/mcL (140-400); Red Blood Count 2.86 M/mcL (3.82-4.97); Red Cell Distribution Width 15.1 % (11.5-14.5); White Blood Count 9.2 K/mcL (4.3-11.1)
[2021-01-14 02:32] LABS: BUN/Creatinine Ratio 26 (6-26); Blood Urea Nitrogen 11 mg/dL (8-23); Calcium 8.3 mg/dL (8.6-10.3); Carbon Dioxide 25 mEq/L (23-29); Chloride 100 mEq/L (98-107); Glucose 195 mg/dL (70-105); Osmolality,Calculated 279 (280-300); Potassium 3.6 mEq/L (3.5-5.1); Sodium 132 mEq/L (136-145); eGFR For African Americans > 60 (> 60); eGFR For Non-African Americans > 60 (> 60)
[2021-01-14] MEDS: *HR* Heparin 5,000 UNIT/ML VIAL SQ SCH ×2 (05:31→16:51)
[2021-01-14] MEDS: Tiotropium 10 INH DOSE IH SCH ×2 (07:54→20:13)
[2021-01-14] MEDS: Budesonide/Formoterol 160/4.5 1 PUFF INH IH SCH ×2 (07:54→20:12)
[2021-01-14] MEDS: Aspirin 325 MG TABLET PO SCH (09:24)
[2021-01-14] MEDS: Furosemide 40 MG TABLET PO SCH (09:24)
[2021-01-14] MEDS: amLODIPine 5 MG TABLET PO SCH (09:25)
[2021-01-14] MEDS: Metoprolol XL (24 HR) Succ 50 MG TAB.ER.24H PO SCH (09:25)
[2021-01-14] MEDS: Isosorbide MONOnitrate (24 HR) 30 MG TAB.ER.24H PO SCH (09:25)
[2021-01-14] MEDS: Gabapentin 300 MG CAPSULE PO SCH ×3 (09:25→21:28)
[2021-01-14] MEDS: Nicotine 21 MG PATCH.TD24 TD SCH (09:26)
[2021-01-14] MEDS: Nitrofurantoin (BID) 100 MG CAPSULE PO SCH ×2 (09:30→16:50)
[2021-01-14] MEDS: levETIRAcetam 250 MG TABLET PO SCH (11:12)
[2021-01-14] MEDS: *HR* LORazepam 0.5 MG TABLET PO PRN (16:51)
[2021-01-15] MEDS: levETIRAcetam 250 MG TABLET PO SCH ×3 (00:40→23:06)
[2021-01-15 02:50] LABS: Basophils # 0.1 K/mcL (0.0-0.2); Basophils % 0.6 %; Eosinophils # 0.3 K/mcL (0.0-0.6); Eosinophils % 3.6 %; Hematocrit 25.4 % (35.3-44.9); Hemoglobin 8.2 g/dL (11.5-15.4); Immature Granulocytes % 0.8 % (0-4); Lymphocytes % 35.8 %; Mean Corpuscular HGB Conc 32.3 g/dL (31.6-35.5); Mean Corpuscular Hemoglobin 28.2 pg (28.0-33.3); Mean Corpuscular Volume 87.3 fL (83.0-100.0); Mean Platelet Volume 9.4 fL (9.4-12.4); Monocytes # 0.6 K/mcL (0.0-1.3); Monocytes % 7.1 %; Neutrophils # 4.3 K/mcL (1.6-8.9); Platelet Count 237 K/mcL (140-400); Red Blood Count 2.91 M/mcL (3.82-4.97); Red Cell Distribution Width 15.2 % (11.5-14.5); Segmented Neutrophils % 52.1 %; White Blood Count 8.3 K/mcL (4.3-11.1)
[2021-01-15 03:02] LABS: BUN/Creatinine Ratio 26 (6-26); Blood Urea Nitrogen 9 mg/dL (8-23); Calcium 8.2 mg/dL (8.6-10.3); Carbon Dioxide 26 mEq/L (23-29); Chloride 101 mEq/L (98-107); Glucose 137 mg/dL (70-105); Osmolality,Calculated 279 (280-300); Potassium 3.7 mEq/L (3.5-5.1); Sodium 134 mEq/L (136-145); eGFR For African Americans > 60 (> 60); eGFR For Non-African Americans > 60 (> 60)
[2021-01-15] MEDS: *HR* HYDROmorphone 2 MG TABLET PO PRN ×4 (03:52→22:20)
[2021-01-15] MEDS: *HR* Heparin 5,000 UNIT/ML VIAL SQ SCH ×2 (06:39→18:01)
[2021-01-15] MEDS: Isosorbide MONOnitrate (24 HR) 30 MG TAB.ER.24H PO SCH (07:52)
[2021-01-15] MEDS: Aspirin 325 MG TABLET PO SCH (07:53)
[2021-01-15] MEDS: Furosemide 40 MG TABLET PO SCH (07:53)
[2021-01-15] MEDS: Gabapentin 300 MG CAPSULE PO SCH ×3 (07:53→20:10)
[2021-01-15] MEDS: *HR* LORazepam 0.5 MG TABLET PO PRN (07:53)
[2021-01-15] MEDS: Metoprolol XL (24 HR) Succ 50 MG TAB.ER.24H PO SCH (07:53)
[2021-01-15] MEDS: amLODIPine 5 MG TABLET PO SCH (07:53)
[2021-01-15] MEDS: Nicotine 21 MG PATCH.TD24 TD SCH (07:54)
[2021-01-15] MEDS: Nitrofurantoin (BID) 100 MG CAPSULE PO SCH ×2 (07:58→18:01)
[2021-01-15] MEDS: Budesonide/Formoterol 160/4.5 1 PUFF INH IH SCH ×2 (10:42→19:41)
[2021-01-15] MEDS: Tiotropium 10 INH DOSE IH SCH ×2 (10:42→19:41)
[2021-01-16 00:41] VITALS: BP 126/66; PULSE 85; TEMP 97.7; O2SAT 93
== END 2021-01-16 01:43 | DRG 308 ==
LOC: 3NENU 12:50 → EMEROOARM 12:50 → 3NENU 17:25
PROVIDERS: ADMIT Internal Medicine; ATTEND Internal Medicine

== ENCOUNTER 2021-11-01 01:06 | Inpatient (IN) ==
[2021-11-01] MEDS ORDERED: Ipratropium/Albuterol Neb 3 ML IH ONE ×2 (01:42→03:11)
[2021-11-01] MEDS ORDERED: methylPREDNISolone 125 MG/2 ML VIAL IVP ONE (01:42)
[2021-11-01 02:21] LABS: Basophils % 0.6 %; Eosinophils # 0.1 K/mcL (0.0-0.6); Eosinophils % 1.5 %; Hematocrit 38.1 % (35.3-44.9); Hemoglobin 12.3 g/dL (11.5-15.4); Immature Granulocytes % 0.4 % (0-4); Lymphocytes # 0.8 K/mcL (0.6-4.6); Lymphocytes % 15.6 %; Mean Corpuscular HGB Conc 32.3 g/dL (31.6-35.5); Mean Corpuscular Hemoglobin 25.7 pg (28.0-33.3); Mean Corpuscular Volume 79.5 fL (83.0-100.0); Mean Platelet Volume 9.2 fL (9.4-12.4); Monocytes # 0.5 K/mcL (0.0-1.3); Monocytes % 10.2 %; Neutrophils # 3.7 K/mcL (1.6-8.9); Platelet Count 158 K/mcL (140-400); Red Blood Count 4.79 M/mcL (3.82-4.97); Red Cell Distribution Width 15.8 % (11.5-14.5); Segmented Neutrophils % 71.7 %; White Blood Count 5.2 K/mcL (4.3-11.1)
[2021-11-01 02:38] LABS: BUN/Creatinine Ratio 14 (6-26); Blood Urea Nitrogen 9 mg/dL (8-23); Carbon Dioxide 24 mEq/L (23-29); Chloride 94 mEq/L (98-107); Glucose 92 mg/dL (70-105); Osmolality,Calculated 264 (280-300); Potassium 3.8 mEq/L (3.5-5.1); Sodium 128 mEq/L (136-145); eGFR For African Americans > 60 (> 60); eGFR For Non-African Americans > 60 (> 60)
[2021-11-01 02:39] LABS: Troponin I < 0.03 ng/mL (< 0.04)
[2021-11-01 02:59] LABS: Influenza A PCR Negative (Negative); Influenza B PCR Negative (Negative); Resp. Syncytial Virus PCR Negative (Negative)
[2021-11-01 03:12] LABS: SARS-CoV-2 by PCR (In House) Positive (Negative)
[2021-11-01] MEDS ORDERED: Azithromycin 500 MG in 0.9 % Sodium Chloride 250 ML IVPB ONE (04:46)
[2021-11-01] MEDS ORDERED: Iopamidol - 370 500 ML MLS IVP ONE (04:48)
[2021-11-01 05:25] LABS: Alanine Aminotransferase 6 Units/L (7-52); Albumin 3.7 g/dL (3.5-5.7); Albumin/Globulin Ratio 0.9 (1.1-2.2); Alkaline Phosphatase 118 Units/L (34-104); Aspartate Amino Transferase 12 Units/L (13-39); Bilirubin,Direct 0.1 mg/dL (0.0-0.2); Bilirubin,Indirect 0.3 mg/dL (0.0-1.0); Bilirubin,Total 0.4 mg/dL (0.3-1.0); Total Protein 7.7 g/dL (6.4-8.9)
[2021-11-01] MEDS ORDERED: Naloxone 0.4 MG/ML INJ IVP PRN (05:43)
[2021-11-01] MEDS ORDERED: Ondansetron 4 MG/2 ML VIAL IVP PRN (05:43)
[2021-11-01] MEDS ORDERED: Ipratropium/Albuterol Neb 3 ML IH PRN (05:48)
[2021-11-01] MEDS ORDERED: Remdesivir 200 MG in 0.9 % Sodium Chloride 100 ML IVPB ONE (05:50)
[2021-11-01] MEDS ORDERED: Acetaminophen 325 MG TABLET PO PRN (06:00)
[2021-11-01 07:27] LABS: Fibrinogen 334 mg/dL (169-393); INR 1.2; Prothrombin Time 13.2 Seconds (9.4-12.1)
[2021-11-01 07:28] LABS: D-Dimer 1023 ng/mLFEU (0-500)
[2021-11-01 07:46] LABS: Thyroid Stimulating Hormone 0.062 mcIU/mL (0.340-5.600)
[2021-11-01] MEDS: cefTRIAXone 1,000 MG in 0.9 % Sodium Chloride 10 ML IVP SCH (10:17)
[2021-11-01] MEDS: Magnesium Oxide 400 MG TABLET PO SCH (10:19)
[2021-11-01] MEDS: *HR* Enoxaparin 40 MG/0.4 ML SYRINGE SQ SCH (10:19)
[2021-11-01] MEDS ORDERED: Ipratropium 1 PUFF INHALER IH SCH (10:45)
[2021-11-01 10:46] LABS: BUN/Creatinine Ratio 17 (6-26); Blood Urea Nitrogen 9 mg/dL (8-23); Calcium 9.2 mg/dL (8.6-10.3); Carbon Dioxide 28 mEq/L (23-29); Chloride 96 mEq/L (98-107); Glucose 141 mg/dL (70-105); Osmolality,Calculated 273 (280-300); Sodium 131 mEq/L (136-145); eGFR For African Americans > 60 (> 60); eGFR For Non-African Americans > 60 (> 60)
[2021-11-01] MEDS: *HR* Buprenorphine HCl 8 MG TAB.SUBL SL SCH ×2 (12:48→20:14)
[2021-11-01] MEDS: Ipratropium 1 PUFF INHALER IH SCH ×3 (15:30→23:00)
[2021-11-01] MEDS: GuaiFENesin/Codeine Oral Soln 5 ML UDC PO PRN (18:50)
[2021-11-01] MEDS: levETIRAcetam 250 MG TABLET PO SCH (20:14)
[2021-11-02] MEDS: Gabapentin 300 MG CAPSULE PO PRN ×3 (00:23→23:05)
[2021-11-02 02:25] LABS: Basophils % 0.3 %; Hematocrit 37.4 % (35.3-44.9); Hemoglobin 11.8 g/dL (11.5-15.4); Immature Granulocytes % 0.3 % (0-4); Lymphocytes # 1.4 K/mcL (0.6-4.6); Lymphocytes % 39.5 %; Mean Corpuscular HGB Conc 31.6 g/dL (31.6-35.5); Mean Corpuscular Hemoglobin 25.2 pg (28.0-33.3); Mean Corpuscular Volume 79.9 fL (83.0-100.0); Mean Platelet Volume 9.8 fL (9.4-12.4); Monocytes # 0.6 K/mcL (0.0-1.3); Monocytes % 16.1 %; Neutrophils # 1.5 K/mcL (1.6-8.9); Platelet Count 159 K/mcL (140-400); Red Blood Count 4.68 M/mcL (3.82-4.97); Red Cell Distribution Width 15.8 % (11.5-14.5); Segmented Neutrophils % 43.8 %; White Blood Count 3.5 K/mcL (4.3-11.1)
[2021-11-02] MEDS: GuaiFENesin/Codeine Oral Soln 5 ML UDC PO PRN (02:45)
[2021-11-02 02:46] LABS: Alanine Aminotransferase 7 Units/L (7-52); Albumin 3.4 g/dL (3.5-5.7); Albumin/Globulin Ratio 0.8 (1.1-2.2); Alkaline Phosphatase 102 Units/L (34-104); Aspartate Amino Transferase 17 Units/L (13-39); BUN/Creatinine Ratio 34 (6-26); Bilirubin,Total 0.2 mg/dL (0.3-1.0); Blood Urea Nitrogen 13 mg/dL (8-23); Calcium 8.5 mg/dL (8.6-10.3); Carbon Dioxide 29 mEq/L (23-29); Chloride 93 mEq/L (98-107); Globulin 4.1 g/dL (2.4-3.5); Glucose 93 mg/dL (70-105); Osmolality,Calculated 266 (280-300); Potassium 3.6 mEq/L (3.5-5.1); Sodium 128 mEq/L (136-145); Total Protein 7.5 g/dL (6.4-8.9); eGFR For African Americans > 60 (> 60); eGFR For Non-African Americans > 60 (> 60)
[2021-11-02 02:48] LABS: Albumin 3.4 g/dL (3.5-5.7); Albumin/Globulin Ratio 0.8 (1.1-2.2); Bilirubin,Direct 0.1 mg/dL (0.0-0.2); Bilirubin,Indirect 0.1 mg/dL (0.0-1.0); Bilirubin,Total 0.2 mg/dL (0.3-1.0); Globulin 4.2 g/dL (2.4-3.5); Total Protein 7.6 g/dL (6.4-8.9)
[2021-11-02] MEDS: Ipratropium 1 PUFF INHALER IH SCH ×4 (04:21→22:38)
[2021-11-02] MEDS: Remdesivir 100 MG in 0.9 % Sodium Chloride 100 ML IVPB SCH (06:10)
[2021-11-02] MEDS: cefTRIAXone 1,000 MG in 0.9 % Sodium Chloride 10 ML IVP SCH (08:15)
[2021-11-02] MEDS: Furosemide 40 MG TABLET PO SCH (08:16)
[2021-11-02] MEDS: Magnesium Oxide 400 MG TABLET PO SCH (08:16)
[2021-11-02] MEDS: Isosorbide MONOnitrate (24 HR) 30 MG TAB.ER.24H PO SCH (08:16)
[2021-11-02] MEDS: Aspirin 325 MG TABLET PO SCH (08:17)
[2021-11-02] MEDS: *HR* Enoxaparin 40 MG/0.4 ML SYRINGE SQ SCH (08:17)
[2021-11-02] MEDS: *HR* Buprenorphine HCl 8 MG TAB.SUBL SL SCH ×2 (08:17→20:32)
[2021-11-02] MEDS: levETIRAcetam 250 MG TABLET PO SCH ×2 (08:17→20:31)
[2021-11-02] MEDS: Metoprolol XL (24 HR) Succ 50 MG TAB.ER.24H PO SCH (08:17)
[2021-11-02] MEDS: amLODIPine 5 MG TABLET PO SCH (08:17)
[2021-11-02] MEDS: Azithromycin 500 MG in 0.9 % Sodium Chloride 250 ML IVPB SCH (08:19)
[2021-11-02 11:35] LABS: Bacteria,Urine Few per hpf (None-Few); Bilirubin,Urine Negative (Negative); Blood,Urine Trace (Negative); Clarity,Urine Clear (Clear); Color,Urine Light-Yellow (Yellow); Glucose,Urine (UA) Normal (Normal); Hyaline Casts,Urine Few per lpf (None Seen); Ketones,Urine Negative (Negative); Leukocyte Esterase,Urine Moderate (Negative); Nitrite,Urine Negative (Negative); PH,Urine 6.5 pH Units (5.0-8.0); Protein,Urine Negative (Neg-Trace); Specific Gravity,Urine 1.014 (1.010-1.025); Squamous Epithelial Cell,Urine Moderate per hpf (None-Few); Urobilinogen,Urine Normal (Normal); WBC,Urine 0-3 per hpf (0-3)
[2021-11-02] MEDS ORDERED: Ipratropium/Albuterol Neb 3 ML IH SCH (16:00)
[2021-11-03] MEDS: Ipratropium 1 PUFF INHALER IH SCH (03:31)
[2021-11-03] MEDS ORDERED: *HR* LORazepam 2 MG/ML VIAL IVP ONE (04:06)
[2021-11-03] MEDS: Remdesivir 100 MG in 0.9 % Sodium Chloride 100 ML IVPB SCH (05:30)
[2021-11-03] MEDS: Azithromycin 500 MG in 0.9 % Sodium Chloride 250 ML IVPB SCH (09:51)
[2021-11-03] MEDS ORDERED: Ipratropium 1 PUFF INHALER IH PRN (09:51)
[2021-11-03] MEDS: *HR* Enoxaparin 40 MG/0.4 ML SYRINGE SQ SCH (09:53)
[2021-11-03] MEDS: cefTRIAXone 1,000 MG in 0.9 % Sodium Chloride 10 ML IVP SCH (09:53)
[2021-11-03] MEDS: Isosorbide MONOnitrate (24 HR) 30 MG TAB.ER.24H PO SCH (09:54)
[2021-11-03] MEDS: Magnesium Oxide 400 MG TABLET PO SCH (09:55)
[2021-11-03] MEDS: Aspirin 325 MG TABLET PO SCH (09:55)
[2021-11-03] MEDS: amLODIPine 5 MG TABLET PO SCH (09:55)
[2021-11-03] MEDS: levETIRAcetam 250 MG TABLET PO SCH (09:55)
[2021-11-03] MEDS: *HR* Buprenorphine HCl 8 MG TAB.SUBL SL SCH (09:55)
[2021-11-03] MEDS: Metoprolol XL (24 HR) Succ 50 MG TAB.ER.24H PO SCH (09:56)
[2021-11-03] MEDS: Furosemide 40 MG TABLET PO SCH (09:56)
[2021-11-03 11:24] VITALS: TEMP 98.2; O2SAT 95
[2021-11-03 15:45] VITALS: BP 125/83; PULSE 78
== END 2021-11-03 17:08 | disposition home or self-care (01) | DRG 137 ==
LOC: EMEROOARM 01:06 → 3ANU 01:06 → SUATTDRO 05:43
PROVIDERS: ADMIT Student in an Organized Health Care Education/Training Program; ATTEND Family Medicine

== ENCOUNTER 2021-11-18 14:06 | Inpatient (IN) ==
[2021-11-18] MEDS ORDERED: DilTIAZem 50 MG/50 ML IV.SOLN IVC SCH (14:45)
[2021-11-18 15:10] LABS: Basophils % 0.2 %; Hematocrit 38.4 % (35.3-44.9); Hemoglobin 12.5 g/dL (11.5-15.4); Immature Granulocytes % 0.4 % (0-4); Lymphocytes # 0.8 K/mcL (0.6-4.6); Lymphocytes % 10.2 %; Mean Corpuscular HGB Conc 32.6 g/dL (31.6-35.5); Mean Corpuscular Hemoglobin 25.9 pg (28.0-33.3); Mean Corpuscular Volume 79.7 fL (83.0-100.0); Mean Platelet Volume 9.5 fL (9.4-12.4); Monocytes # 0.3 K/mcL (0.0-1.3); Monocytes % 3.7 %; Platelet Count 225 K/mcL (140-400); Red Blood Count 4.82 M/mcL (3.82-4.97); Red Cell Distribution Width 16.1 % (11.5-14.5); Segmented Neutrophils % 85.5 %; White Blood Count 8.1 K/mcL (4.3-11.1)
[2021-11-18 15:21] LABS: INR 1.2; Prothrombin Time 13.3 Seconds (9.4-12.1)
[2021-11-18 15:31] LABS: BUN/Creatinine Ratio 14 (6-26); Blood Urea Nitrogen 6 mg/dL (8-23); Calcium 8.8 mg/dL (8.6-10.3); Carbon Dioxide 22 mEq/L (23-29); Chloride 101 mEq/L (98-107); Glucose 143 mg/dL (70-105); Magnesium 1.4 mg/dL (1.6-2.6); Osmolality,Calculated 276 (280-300); Potassium 3.4 mEq/L (3.5-5.1); Sodium 133 mEq/L (136-145); eGFR For African Americans > 60 (> 60); eGFR For Non-African Americans > 60 (> 60)
[2021-11-18 15:43] LABS: Troponin I 0.17 ng/mL (< 0.04)
[2021-11-18 15:48] LABS: Influenza A PCR Negative (Negative); Influenza B PCR Negative (Negative); Resp. Syncytial Virus PCR Negative (Negative)
[2021-11-18 15:50] LABS: SARS-CoV-2 by PCR (In House) Positive (Negative)
[2021-11-18] MEDS ORDERED: Iopamidol - 370 500 ML MLS IVP ONE (16:08)
[2021-11-18] MEDS ORDERED: 0.9 % Sodium Chloride 1,000 ML IVC ONE (17:20)
[2021-11-18] MEDS ORDERED: Gabapentin 300 MG CAPSULE PO PRN (17:35)
[2021-11-18] MEDS ORDERED: Benzonatate 100 MG CAPSULE PO PRN (17:39)
[2021-11-18] MEDS ORDERED: *HR* Heparin 5,000 UNIT/ML VIAL IVP ONE (17:44)
[2021-11-18] MEDS ORDERED: *HR* Heparin 5,000 UNIT/ML VIAL IVP PRN ×2 (17:44)
[2021-11-18] MEDS ORDERED: Naloxone 0.4 MG/ML INJ IVP PRN (17:45)
[2021-11-18] MEDS ORDERED: Heparin 25,000UNIT/250ML 1/2NS 25,000 UNIT/250 ML IV.SOLN IVC SCH (17:45)
[2021-11-18] MEDS: levETIRAcetam 250 MG TABLET PO SCH (20:00)
[2021-11-18] MEDS: Ipratropium 1 PUFF INHALER IH SCH ×2 (20:39→22:53)
[2021-11-18 20:53] LABS: Albumin 3.2 g/dL (3.5-5.7); Albumin/Globulin Ratio 0.9 (1.1-2.2); Bilirubin,Direct 0.1 mg/dL (0.0-0.2); Bilirubin,Indirect 0.3 mg/dL (0.0-1.0); Bilirubin,Total 0.4 mg/dL (0.3-1.0); Globulin 3.7 g/dL (2.4-3.5); Total Protein 6.9 g/dL (6.4-8.9)
[2021-11-18 20:54] LABS: Magnesium 1.5 mg/dL (1.6-2.6)
[2021-11-18 21:01] LABS: Troponin I 0.21 ng/mL (< 0.04)
[2021-11-19] MEDS: Ipratropium 1 PUFF INHALER IH SCH ×6 (03:47→23:22)
[2021-11-19 04:24] LABS: Basophils % 0.3 %; Hematocrit 35.1 % (35.3-44.9); Hemoglobin 11.3 g/dL (11.5-15.4); Immature Granulocytes % 0.3 % (0-4); Lymphocytes # 1.3 K/mcL (0.6-4.6); Lymphocytes % 37.8 %; Mean Corpuscular HGB Conc 32.2 g/dL (31.6-35.5); Mean Corpuscular Hemoglobin 25.6 pg (28.0-33.3); Mean Corpuscular Volume 79.6 fL (83.0-100.0); Mean Platelet Volume 9.6 fL (9.4-12.4); Monocytes # 0.2 K/mcL (0.0-1.3); Monocytes % 4.9 %; Platelet Count 182 K/mcL (140-400); Red Blood Count 4.41 M/mcL (3.82-4.97); Red Cell Distribution Width 16.3 % (11.5-14.5); Segmented Neutrophils % 56.7 %
[2021-11-19 04:25] LABS: Alanine Aminotransferase 6 Units/L (7-52); Albumin/Globulin Ratio 0.8 (1.1-2.2); Alkaline Phosphatase 87 Units/L (34-104); Aspartate Amino Transferase 10 Units/L (13-39); BUN/Creatinine Ratio 21 (6-26); Bilirubin,Total 0.4 mg/dL (0.3-1.0); Blood Urea Nitrogen 6 mg/dL (8-23); Calcium 8.4 mg/dL (8.6-10.3); Carbon Dioxide 22 mEq/L (23-29); Chloride 106 mEq/L (98-107); Chol/HDL Ratio 3.1 (0-4.9); Cholesterol 78 mg/dL (< 200); Globulin 3.8 g/dL (2.4-3.5); Glucose 112 mg/dL (70-105); HDL Cholesterol 25 mg/dL (40-59); LDL Cholesterol,Calculated 40 mg/dL (< 100); Osmolality,Calculated 276 (280-300); Sodium 134 mEq/L (136-145); Total Protein 6.8 g/dL (6.4-8.9); Triglycerides 64 mg/dL (< 150); eGFR For African Americans > 60 (> 60); eGFR For Non-African Americans > 60 (> 60)
[2021-11-19 04:30] LABS: White Blood Count 3.5 K/mcL (4.3-11.1)
[2021-11-19 04:35] LABS: Troponin I 0.12 ng/mL (< 0.04)
[2021-11-19] MEDS: Isosorbide MONOnitrate (24 HR) 30 MG TAB.ER.24H PO SCH (08:21)
[2021-11-19] MEDS: levETIRAcetam 250 MG TABLET PO SCH ×2 (08:21→22:10)
[2021-11-19] MEDS: amLODIPine 5 MG TABLET PO SCH (08:21)
[2021-11-19] MEDS: Furosemide 40 MG TABLET PO SCH (08:21)
[2021-11-19] MEDS: dexAMETHasone 4 MG TABLET PO SCH (08:21)
[2021-11-19] MEDS ORDERED: Perflutren Lipid Microsphere 1.3 ML in 0.9 % Sodium Chloride 8.7 ML IVP PRN (08:45)
[2021-11-19] MEDS ORDERED: NALOXONE HCL SL SCH (09:00)
[2021-11-19] MEDS ORDERED: BUPRENORPHINE HCL SL SCH (09:00)
[2021-11-19] MEDS ORDERED: Metoprolol XL (24 HR) Succ 50 MG TAB.ER.24H PO SCH (09:00)
[2021-11-19] MEDS: Apixaban 5 MG TABLET PO SCH ×2 (12:12→22:12)
[2021-11-19] MEDS: *HR* Buprenorphine HCl 8 MG TAB.SUBL SL SCH (13:05)
[2021-11-19] MEDS: Acetaminophen 325 MG TABLET PO PRN (22:12)
[2021-11-20 03:24] LABS: Basophils % 0.2 %; Hematocrit 33.3 % (35.3-44.9); Hemoglobin 10.5 g/dL (11.5-15.4); Immature Granulocytes % 0.2 % (0-4); Lymphocytes % 50.1 %; Mean Corpuscular HGB Conc 31.5 g/dL (31.6-35.5); Mean Corpuscular Hemoglobin 25.4 pg (28.0-33.3); Mean Corpuscular Volume 80.6 fL (83.0-100.0); Mean Platelet Volume 9.6 fL (9.4-12.4); Monocytes # 0.4 K/mcL (0.0-1.3); Platelet Count 205 K/mcL (140-400); Red Blood Count 4.13 M/mcL (3.82-4.97); Red Cell Distribution Width 16.2 % (11.5-14.5); Segmented Neutrophils % 42.5 %
[2021-11-20 03:38] LABS: Lymphocytes # 2.7 K/mcL (0.6-4.6); Neutrophils # 2.3 K/mcL (1.6-8.9); White Blood Count 5.3 K/mcL (4.3-11.1)
[2021-11-20 03:53] LABS: Alanine Aminotransferase 5 Units/L (7-52); Albumin 3.1 g/dL (3.5-5.7); Albumin/Globulin Ratio 0.9 (1.1-2.2); Alkaline Phosphatase 80 Units/L (34-104); Aspartate Amino Transferase 11 Units/L (13-39); BUN/Creatinine Ratio 22 (6-26); Bilirubin,Total 0.3 mg/dL (0.3-1.0); Blood Urea Nitrogen 10 mg/dL (8-23); Calcium 8.6 mg/dL (8.6-10.3); Carbon Dioxide 21 mEq/L (23-29); Chloride 102 mEq/L (98-107); Globulin 3.4 g/dL (2.4-3.5); Glucose 107 mg/dL (70-105); Osmolality,Calculated 272 (280-300); Potassium 3.9 mEq/L (3.5-5.1); Sodium 131 mEq/L (136-145); Total Protein 6.5 g/dL (6.4-8.9); eGFR For African Americans > 60 (> 60); eGFR For Non-African Americans > 60 (> 60)
[2021-11-20] MEDS: Ipratropium 1 PUFF INHALER IH SCH ×6 (04:04→23:33)
[2021-11-20] MEDS: Metoprolol XL (24 HR) Succ 50 MG TAB.ER.24H PO SCH (09:17)
[2021-11-20] MEDS: Furosemide 40 MG TABLET PO SCH (09:17)
[2021-11-20] MEDS: *HR* Buprenorphine HCl 8 MG TAB.SUBL SL SCH (09:17)
[2021-11-20] MEDS: levETIRAcetam 250 MG TABLET PO SCH ×2 (09:18→20:40)
[2021-11-20] MEDS: amLODIPine 5 MG TABLET PO SCH (09:18)
[2021-11-20] MEDS: dexAMETHasone 4 MG TABLET PO SCH (09:19)
[2021-11-20] MEDS: Isosorbide MONOnitrate (24 HR) 30 MG TAB.ER.24H PO SCH (09:20)
[2021-11-20] MEDS: Apixaban 5 MG TABLET PO SCH ×2 (09:20→20:41)
[2021-11-21] MEDS: Acetaminophen 325 MG TABLET PO PRN ×2 (03:58→21:24)
[2021-11-21] MEDS: Ipratropium 1 PUFF INHALER IH SCH ×6 (04:57→23:43)
[2021-11-21] MEDS: Metoprolol XL (24 HR) Succ 50 MG TAB.ER.24H PO SCH (07:36)
[2021-11-21] MEDS: *HR* Buprenorphine HCl 8 MG TAB.SUBL SL SCH (07:36)
[2021-11-21] MEDS: dexAMETHasone 4 MG TABLET PO SCH (07:36)
[2021-11-21] MEDS: Isosorbide MONOnitrate (24 HR) 30 MG TAB.ER.24H PO SCH (07:36)
[2021-11-21] MEDS: amLODIPine 5 MG TABLET PO SCH (07:36)
[2021-11-21] MEDS: levETIRAcetam 250 MG TABLET PO SCH ×2 (07:36→21:20)
[2021-11-21] MEDS: Furosemide 40 MG TABLET PO SCH (07:36)
[2021-11-21] MEDS: Apixaban 5 MG TABLET PO SCH ×2 (07:37→21:20)
[2021-11-21 09:45] LABS: Basophils % 0.5 %; Eosinophils % 0.3 %; Hematocrit 38.9 % (35.3-44.9); Immature Granulocytes % 0.2 % (0-4); Lymphocytes % 48.5 %; Mean Corpuscular HGB Conc 31.9 g/dL (31.6-35.5); Mean Corpuscular Hemoglobin 25.8 pg (28.0-33.3); Mean Platelet Volume 9.9 fL (9.4-12.4); Monocytes # 0.5 K/mcL (0.0-1.3); Monocytes % 7.9 %; Neutrophils # 2.6 K/mcL (1.6-8.9); Platelet Count 288 K/mcL (140-400); Red Cell Distribution Width 16.3 % (11.5-14.5); Segmented Neutrophils % 42.6 %; White Blood Count 6.2 K/mcL (4.3-11.1)
[2021-11-21 09:47] LABS: Hemoglobin 12.4 g/dL (11.5-15.4)
[2021-11-21 10:04] LABS: Alanine Aminotransferase 7 Units/L (7-52); Albumin 3.5 g/dL (3.5-5.7); Albumin/Globulin Ratio 0.9 (1.1-2.2); Alkaline Phosphatase 87 Units/L (34-104); Aspartate Amino Transferase 11 Units/L (13-39); BUN/Creatinine Ratio 18 (6-26); Bilirubin,Total 0.4 mg/dL (0.3-1.0); Blood Urea Nitrogen 8 mg/dL (8-23); Carbon Dioxide 26 mEq/L (23-29); Chloride 103 mEq/L (98-107); Globulin 4.1 g/dL (2.4-3.5); Glucose 102 mg/dL (70-105); Osmolality,Calculated 279 (280-300); Potassium 3.8 mEq/L (3.5-5.1); Sodium 135 mEq/L (136-145); Total Protein 7.6 g/dL (6.4-8.9); eGFR For African Americans > 60 (> 60); eGFR For Non-African Americans > 60 (> 60)
[2021-11-21] MEDS ORDERED: Famotidine 20 MG TABLET PO ONE (22:49)
[2021-11-22] MEDS: Ipratropium 1 PUFF INHALER IH SCH ×4 (04:00→16:13)
[2021-11-22 07:46] VITALS: BP 155/72; PULSE 66; TEMP 98
[2021-11-22] MEDS: *HR* Buprenorphine HCl 8 MG TAB.SUBL SL SCH (08:04)
[2021-11-22] MEDS: Furosemide 40 MG TABLET PO SCH (08:05)
[2021-11-22] MEDS: Isosorbide MONOnitrate (24 HR) 30 MG TAB.ER.24H PO SCH (08:05)
[2021-11-22] MEDS: levETIRAcetam 250 MG TABLET PO SCH (08:05)
[2021-11-22] MEDS: Apixaban 5 MG TABLET PO SCH (08:05)
[2021-11-22] MEDS: amLODIPine 5 MG TABLET PO SCH (08:06)
[2021-11-22] MEDS: dexAMETHasone 4 MG TABLET PO SCH (08:06)
[2021-11-22] MEDS: Metoprolol XL (24 HR) Succ 50 MG TAB.ER.24H PO SCH (08:06)
[2021-11-22 11:42] VITALS: O2SAT 95
== END 2021-11-22 16:42 | disposition home or self-care (01) | DRG 137 ==
LOC: EMEROOARM 14:06 → 2NENU 14:06 → SUATTDRO 17:02 → 2NENU 18:44
PROVIDERS: ADMIT Family Medicine; ATTEND Internal Medicine

== ENCOUNTER 2021-12-28 22:03 | Observation (INO) ==
[2021-12-28 22:58] LABS: Basophils % 0.5 %; Eosinophils % 0.4 %; Hematocrit 36.5 % (35.3-44.9); Immature Granulocytes % 0.2 % (0-4); Lymphocytes # 2.1 K/mcL (0.6-4.6); Lymphocytes % 38.4 %; Mean Corpuscular HGB Conc 32.9 g/dL (31.6-35.5); Mean Corpuscular Hemoglobin 27.5 pg (28.0-33.3); Mean Corpuscular Volume 83.5 fL (83.0-100.0); Mean Platelet Volume 9.4 fL (9.4-12.4); Monocytes # 0.3 K/mcL (0.0-1.3); Platelet Count 172 K/mcL (140-400); Red Blood Count 4.37 M/mcL (3.82-4.97); Red Cell Distribution Width 15.9 % (11.5-14.5); Segmented Neutrophils % 54.5 %; White Blood Count 5.5 K/mcL (4.3-11.1)
[2021-12-28 23:08] LABS: INR 1.1; Prothrombin Time 12.3 Seconds (9.4-12.1)
[2021-12-28 23:10] LABS: Activated Partial Thrombo Time 32.8 Seconds (26.0-36.0)
[2021-12-28 23:19] LABS: BUN/Creatinine Ratio 20 (6-26); Blood Urea Nitrogen 9 mg/dL (8-23); Calcium 9.1 mg/dL (8.6-10.3); Carbon Dioxide 23 mEq/L (23-29); Chloride 105 mEq/L (98-107); Glucose 99 mg/dL (70-105); Osmolality,Calculated 279 (280-300); Potassium 3.4 mEq/L (3.5-5.1); Sodium 135 mEq/L (136-145); Troponin I < 0.03 ng/mL (< 0.04)
[2021-12-28] MEDS: Nitroglycerin 0.4 MG TAB.SUBL SL PRN ×3 (23:29→23:41)
[2021-12-29] MEDS ORDERED: *HR* Heparin 5,000 UNIT/ML VIAL IVP PRN ×2 (01:34)
[2021-12-29] MEDS ORDERED: *HR* Heparin 5,000 UNIT/ML VIAL IVP ONE (01:34)
[2021-12-29] MEDS ORDERED: Ondansetron 4 MG/2 ML VIAL IVP PRN (01:42)
[2021-12-29] MEDS ORDERED: Acetaminophen 325 MG TABLET PO PRN (01:42)
[2021-12-29] MEDS ORDERED: Naloxone 0.4 MG/ML INJ IVP PRN (01:42)
[2021-12-29] MEDS ORDERED: Heparin 25,000UNIT/250ML 1/2NS 25,000 UNIT/250 ML IV.SOLN IVC SCH (01:45)
[2021-12-29] MEDS: Morphine Sulfate 2 MG/ML SYRINGE IVP PRN ×3 (01:46→18:32)
[2021-12-29 03:43] LABS: Hematocrit 34.6 % (35.3-44.9); Hemoglobin 11.2 g/dL (11.5-15.4); Mean Corpuscular HGB Conc 32.4 g/dL (31.6-35.5); Mean Corpuscular Hemoglobin 27.5 pg (28.0-33.3); Mean Corpuscular Volume 84.8 fL (83.0-100.0); Platelet Count 164 K/mcL (140-400); Red Blood Count 4.08 M/mcL (3.82-4.97); Red Cell Distribution Width 15.9 % (11.5-14.5); White Blood Count 5.9 K/mcL (4.3-11.1)
[2021-12-29 03:53] LABS: Heparin anti-factor XA UFH 0.04 IU/mL (0.30-0.70)
[2021-12-29] MEDS: Levalbuterol Neb 1.25 MG/3 ML IH SCH ×6 (04:01→23:20)
[2021-12-29 04:14] LABS: % Iron Saturation 9 % (15-50); BUN/Creatinine Ratio 17 (6-26); Blood Urea Nitrogen 8 mg/dL (8-23); Calcium 8.8 mg/dL (8.6-10.3); Carbon Dioxide 22 mEq/L (23-29); Chloride 106 mEq/L (98-107); Chol/HDL Ratio 2.2 (0-4.9); Cholesterol 88 mg/dL (< 200); Glucose 92 mg/dL (70-105); HDL Cholesterol 40 mg/dL (40-59); Iron 29 mcg/dL (50-170); LDL Cholesterol,Calculated 41 mg/dL (< 100); Magnesium 1.8 mg/dL (1.6-2.6); Osmolality,Calculated 282 (280-300); Potassium 3.5 mEq/L (3.5-5.1); Sodium 137 mEq/L (136-145); Transferrin 220 mg/dL (203-362); Triglycerides 36 mg/dL (< 150); Troponin I < 0.03 ng/mL (< 0.04)
[2021-12-29 04:19] LABS: Thyroid Stimulating Hormone 0.224 mcIU/mL (0.340-5.600)
[2021-12-29 04:23] LABS: Ferritin 19 ng/mL (10-120)
[2021-12-29 04:27] LABS: Folate 6.7 ng/mL (3.0-16.0)
[2021-12-29] MEDS: levETIRAcetam 250 MG TABLET PO SCH ×2 (05:18→17:47)
[2021-12-29 06:37] LABS: Estimated Average Glucose 120 mg/dl; Hemoglobin A1C 5.8 %
[2021-12-29] MEDS: Furosemide 40 MG TABLET PO SCH (09:57)
[2021-12-29] MEDS: Famotidine 20 MG TABLET PO SCH ×2 (09:57→20:51)
[2021-12-29] MEDS: *HR* Buprenorphine HCl 8 MG TAB.SUBL SL SCH ×2 (09:57→20:51)
[2021-12-29] MEDS: Gabapentin 300 MG CAPSULE PO SCH ×3 (09:57→20:50)
[2021-12-29] MEDS: amLODIPine 5 MG TABLET PO SCH (09:57)
[2021-12-29] MEDS ORDERED: *HR* LORazepam 2 MG/ML VIAL IVP ONE ×2 (10:44→21:47)
[2021-12-29] MEDS ORDERED: MethylPREDNISolone 40 MG/ML VIAL IVP ONE (10:51)
[2021-12-29] MEDS: Acetylcysteine 10% 2 ML INHSOL IH SCH ×3 (11:18→22:11)
[2021-12-29] MEDS: MethylPREDNISolone 40 MG/ML VIAL IVP SCH (17:47)
[2021-12-29] MEDS: Iron Sucrose Complex 250 MG in 0.9 % Sodium Chloride 250 ML IVPB SCH (18:32)
[2021-12-29] MEDS: traZODone 50 MG TABLET PO SCH (20:49)
[2021-12-30] MEDS: Levalbuterol Neb 1.25 MG/3 ML IH SCH ×6 (04:54→23:31)
[2021-12-30] MEDS: MethylPREDNISolone 40 MG/ML VIAL IVP SCH (05:14)
[2021-12-30] MEDS: levETIRAcetam 250 MG TABLET PO SCH ×2 (05:14→16:01)
[2021-12-30] MEDS: Morphine Sulfate 2 MG/ML SYRINGE IVP PRN ×2 (05:27→17:29)
[2021-12-30 05:42] LABS: Hematocrit 35.4 % (35.3-44.9); Hemoglobin 11.3 g/dL (11.5-15.4); Mean Corpuscular HGB Conc 31.9 g/dL (31.6-35.5); Mean Corpuscular Hemoglobin 27.1 pg (28.0-33.3); Mean Corpuscular Volume 84.9 fL (83.0-100.0); Platelet Count 165 K/mcL (140-400); Red Blood Count 4.17 M/mcL (3.82-4.97); Red Cell Distribution Width 15.9 % (11.5-14.5); White Blood Count 5.7 K/mcL (4.3-11.1)
[2021-12-30 06:08] LABS: BUN/Creatinine Ratio 15 (6-26); Blood Urea Nitrogen 7 mg/dL (8-23); Calcium 8.9 mg/dL (8.6-10.3); Carbon Dioxide 25 mEq/L (23-29); Chloride 106 mEq/L (98-107); Glucose 106 mg/dL (70-105); Osmolality,Calculated 280 (280-300); Potassium 4.1 mEq/L (3.5-5.1); Sodium 136 mEq/L (136-145)
[2021-12-30 09:23] LABS: Triiodothyronine (T3) Free 3.27 pg/mL (2.50-3.90)
[2021-12-30] MEDS: Gabapentin 300 MG CAPSULE PO SCH ×3 (09:29→22:49)
[2021-12-30] MEDS: Iron Sucrose Complex 250 MG in 0.9 % Sodium Chloride 250 ML IVPB SCH (09:29)
[2021-12-30] MEDS: *HR* Buprenorphine HCl 8 MG TAB.SUBL SL SCH ×2 (09:29→22:49)
[2021-12-30] MEDS: predniSONE 20 MG TABLET PO SCH (09:29)
[2021-12-30] MEDS: Furosemide 40 MG TABLET PO SCH (09:29)
[2021-12-30] MEDS: amLODIPine 5 MG TABLET PO SCH (09:29)
[2021-12-30] MEDS: Famotidine 20 MG TABLET PO SCH ×2 (09:29→22:49)
[2021-12-30] MEDS ORDERED: Furosemide 40 MG TABLET PO ONE (16:39)
[2021-12-30] MEDS ORDERED: Azithromycin 500 MG in 0.9 % Sodium Chloride 250 ML IVPB SCH (18:00)
[2021-12-30] MEDS: Apixaban 5 MG TABLET PO SCH (22:48)
[2021-12-30] MEDS: traZODone 50 MG TABLET PO SCH (22:49)
[2021-12-31] MEDS: Levalbuterol Neb 1.25 MG/3 ML IH SCH ×3 (04:20→11:06)
[2021-12-31] MEDS: levETIRAcetam 250 MG TABLET PO SCH (05:22)
[2021-12-31] MEDS: Furosemide 40 MG TABLET PO SCH (09:55)
[2021-12-31] MEDS: Apixaban 5 MG TABLET PO SCH (09:55)
[2021-12-31] MEDS: amLODIPine 5 MG TABLET PO SCH (09:55)
[2021-12-31] MEDS: Gabapentin 300 MG CAPSULE PO SCH (09:55)
[2021-12-31] MEDS: predniSONE 20 MG TABLET PO SCH (09:55)
[2021-12-31] MEDS: *HR* Buprenorphine HCl 8 MG TAB.SUBL SL SCH (09:55)
[2021-12-31] MEDS: Famotidine 20 MG TABLET PO SCH (09:56)
[2021-12-31 10:57] VITALS: BP 110/69; PULSE 81; TEMP 97.8; O2SAT 96
[2021-12-31 12:13] LABS: Amorphous Sediment,Urine Few per hpf (None-Few); Bacteria,Urine Few per hpf (None-Few); Bilirubin,Urine Negative (Negative); Blood,Urine Negative (Negative); Clarity,Urine Turbid (Clear); Color,Urine Light-Yellow (Yellow); Glucose,Urine (UA) Normal (Normal); Ketones,Urine Negative (Negative); Leukocyte Esterase,Urine Large (Negative); Mucus,Urine Few per lpf (None-Few); Nitrite,Urine Positive (Negative); PH,Urine 6.5 pH Units (5.0-8.0); Protein,Urine Negative (Neg-Trace); RBC,Urine 0-3 per hpf (0-3); Renal Epithelial Cells,Urine Few per hpf (None-Few); Specific Gravity,Urine 1.011 (1.010-1.025); Squamous Epithelial Cell,Urine Few per hpf (None-Few); Urobilinogen,Urine Normal (Normal); WBC,Urine 30-50 per hpf (0-3)
== END 2021-12-31 13:17 | disposition home or self-care (01) ==
LOC: 3BNU 22:03 → EMEROOARM 22:03 → SUATTDRO 12-29 00:23 → 3BNU 12-29 00:50
PROVIDERS: ADMIT Internal Medicine; ATTEND Student in an Organized Health Care Education/Training Program

== ENCOUNTER 2022-02-11 13:40 | Observation (INO) ==
[2022-02-11 15:48] LABS: Basophils % 0.2 %; Eosinophils % 0.3 %; Hematocrit 40.6 % (35.3-44.9); Hemoglobin 13.2 g/dL (11.5-15.4); Immature Granulocytes % 0.6 % (0-4); Lymphocytes # 1.1 K/mcL (0.6-4.6); Lymphocytes % 10.3 %; Mean Corpuscular HGB Conc 32.5 g/dL (31.6-35.5); Mean Corpuscular Hemoglobin 28.6 pg (28.0-33.3); Mean Corpuscular Volume 88.1 fL (83.0-100.0); Mean Platelet Volume 9.6 fL (9.4-12.4); Monocytes # 0.4 K/mcL (0.0-1.3); Monocytes % 3.5 %; Neutrophils # 8.9 K/mcL (1.6-8.9); Platelet Count 215 K/mcL (140-400); Red Blood Count 4.61 M/mcL (3.82-4.97); Red Cell Distribution Width 14.8 % (11.5-14.5); Segmented Neutrophils % 85.1 %; White Blood Count 10.5 K/mcL (4.3-11.1)
[2022-02-11 15:52] LABS: Bacteria,Urine Few per hpf (None-Few); Bilirubin,Urine Negative (Negative); Blood,Urine Negative (Negative); Clarity,Urine Turbid (Clear); Color,Urine Yellow (Yellow); Glucose,Urine (UA) Normal (Normal); Ketones,Urine Negative (Negative); Leukocyte Esterase,Urine Large (Negative); Mucus,Urine Few per lpf (None-Few); Nitrite,Urine Negative (Negative); Protein,Urine 30 mg/dL (Neg-Trace); Specific Gravity,Urine 1.024 (1.010-1.025); Squamous Epithelial Cell,Urine Moderate per hpf (None-Few)
[2022-02-11 15:54] LABS: BUN/Creatinine Ratio 14 (6-26); Blood Urea Nitrogen 7 mg/dL (8-23); Calcium 9.5 mg/dL (8.6-10.3); Carbon Dioxide 24 mEq/L (23-29); Chloride 105 mEq/L (98-107); Glucose 109 mg/dL (70-105); Magnesium 1.8 mg/dL (1.6-2.6); Osmolality,Calculated 283 (280-300); Potassium 3.8 mEq/L (3.5-5.1); Sodium 137 mEq/L (136-145)
[2022-02-11 16:01] LABS: Troponin I 0.04 ng/mL (< 0.04)
[2022-02-11] MEDS ORDERED: Iopamidol - 370 500 ML MLS IVP ONE (16:21)
[2022-02-11] MEDS ORDERED: *HR* HYDROmorphone (PF) 1 MG/ML SYRINGE IVP ONE (16:24)
[2022-02-11] MEDS ORDERED: Naloxone 0.4 MG/ML INJ IVP PRN (19:36)
[2022-02-11] MEDS ORDERED: Ondansetron 4 MG/2 ML VIAL IVP PRN (19:36)
[2022-02-11] MEDS: cefTRIAXone 1,000 MG in 0.9 % Sodium Chloride Mini Bag 100 ML IVPB SCH (20:16)
[2022-02-11 21:39] LABS: Adenovirus Not Detected (Not Detect); Bordetella Pertussis Not Detected (Not Detect); Chlamydophila pneumoniae Not Detected (Not Detect); Coronavirus 229E Not Detected (Not Detect); Coronavirus HKU1 Not Detected (Not Detect); Coronavirus NL63 Not Detected (Not Detect); Coronavirus OC43 Not Detected (Not Detect); Human Metapneumovirus Not Detected (Not Detect); Human Rhinovirus/Enterovirus Not Detected (Not Detect); Influenza A Subtype 2009 H1 Not Detected (Not Detect); Influenza B Not Detected (Not Detect); Mycoplasma pneumoniae Not Detected (Not Detect); Parainfluenza Virus 1 Not Detected (Not Detect); Parainfluenza Virus 2 Not Detected (Not Detect); Parainfluenza Virus 3 Not Detected (Not Detect); Parainfluenza Virus 4 Not Detected (Not Detect); Respiratory Syncytial Virus Not Detected (Not Detect); SARS-CoV-2 Not Detected (Not Detect)
[2022-02-11] MEDS: Acetaminophen 325 MG TABLET PO PRN (21:54)
[2022-02-11] MEDS: *HR* HYDROmorphone (PF) 1 MG/ML SYRINGE IVP PRN (22:54)
[2022-02-12] MEDS ORDERED: Gabapentin 300 MG CAPSULE PO PRN (02:41)
[2022-02-12] MEDS ORDERED: traZODone 50 MG TABLET PO PRN (02:41)
[2022-02-12] MEDS: Acetaminophen 325 MG TABLET PO PRN (03:55)
[2022-02-12 04:07] LABS: Basophils % 0.2 %; Eosinophils % 0.3 %; Hematocrit 42.9 % (35.3-44.9); Hemoglobin 13.8 g/dL (11.5-15.4); Immature Granulocytes % 0.4 % (0-4); Lymphocytes # 1.5 K/mcL (0.6-4.6); Lymphocytes % 13.3 %; Mean Corpuscular HGB Conc 32.2 g/dL (31.6-35.5); Mean Corpuscular Hemoglobin 28.2 pg (28.0-33.3); Mean Corpuscular Volume 87.6 fL (83.0-100.0); Mean Platelet Volume 9.6 fL (9.4-12.4); Monocytes # 0.5 K/mcL (0.0-1.3); Monocytes % 4.9 %; Platelet Count 216 K/mcL (140-400); Red Cell Distribution Width 14.6 % (11.5-14.5); Segmented Neutrophils % 80.9 %; White Blood Count 11.1 K/mcL (4.3-11.1)
[2022-02-12 04:15] LABS: INR 1.2; Prothrombin Time 13.2 Seconds (9.4-12.1)
[2022-02-12] MEDS ORDERED: *HR* Labetalol 20 MG/4 ML SYRINGE IVP ONE (04:25)
[2022-02-12 04:39] LABS: Troponin I 0.04 ng/mL (< 0.04)
[2022-02-12 04:45] LABS: Alanine Aminotransferase 10 Units/L (7-52); Albumin/Globulin Ratio 1.1 (1.1-2.2); Alkaline Phosphatase 131 Units/L (34-104); Aspartate Amino Transferase 11 Units/L (13-39); BUN/Creatinine Ratio 14 (6-26); Bilirubin,Direct 0.1 mg/dL (0.0-0.2); Bilirubin,Indirect 0.4 mg/dL (0.0-1.0); Bilirubin,Total 0.5 mg/dL (0.3-1.0); Blood Urea Nitrogen 7 mg/dL (8-23); Calcium 9.6 mg/dL (8.6-10.3); Carbon Dioxide 21 mEq/L (23-29); Chloride 104 mEq/L (98-107); Globulin 3.7 g/dL (2.4-3.5); Glucose 92 mg/dL (70-105); Magnesium 1.9 mg/dL (1.6-2.6); Osmolality,Calculated 282 (280-300); Potassium 3.8 mEq/L (3.5-5.1); Sodium 137 mEq/L (136-145); Thyroid Stimulating Hormone 0.371 mcIU/mL (0.340-5.600); Total Protein 7.7 g/dL (6.4-8.9)
[2022-02-12] MEDS: *HR* HYDROmorphone (PF) 1 MG/ML SYRINGE IVP PRN (07:34)
[2022-02-12] MEDS ORDERED: amLODIPine 5 MG TABLET PO SCH (09:00)
[2022-02-12] MEDS ORDERED: Isosorbide MONOnitrate (24 HR) 30 MG TAB.ER.24H PO SCH (09:00)
[2022-02-12] MEDS ORDERED: Apixaban 5 MG TABLET PO SCH (09:00)
[2022-02-12] MEDS ORDERED: Metoprolol XL (24 HR) Succ 50 MG TAB.ER.24H PO SCH (09:00)
[2022-02-12] MEDS ORDERED: levETIRAcetam 250 MG TABLET PO SCH (09:00)
[2022-02-12] MEDS ORDERED: (Buprenorphine Hcl/Naloxone Hcl 8MG/2MG) SL SCH (09:00)
[2022-02-12] MEDS ORDERED: Furosemide 40 MG TABLET PO SCH (09:00)
[2022-02-12] MEDS ORDERED: predniSONE 10 MG TABLET PO SCH (09:00)
[2022-02-12] MEDS ORDERED: Ketorolac 30 MG/ML VIAL IVP ONE (09:02)
[2022-02-12] MEDS: cefTRIAXone 1,000 MG in 0.9 % Sodium Chloride Mini Bag 100 ML IVPB SCH (09:22)
[2022-02-12] MEDS ORDERED: *HR* Buprenorphine HCl 8 MG TAB.SUBL SL SCH (10:00)
[2022-02-12 11:16] VITALS: TEMP 97.9
[2022-02-12 14:41] VITALS: BP 102/62; PULSE 73; O2SAT 96
== END 2022-02-12 16:34 | disposition home or self-care (01) ==
LOC: 3BNU 13:40 → EMEROOARM 13:40 → SUATTDRO 18:42 → 3BNU 20:13
PROVIDERS: ADMIT Internal Medicine; ATTEND Registered Nurse

== ENCOUNTER 2022-02-16 06:07 | Inpatient (IN) ==
[2022-02-16] MEDS ORDERED: Aspirin 81 MG TAB.CHEW PO STA (06:16)
[2022-02-16 06:50] LABS: Basophils % 0.4 %; Eosinophils # 0.1 K/mcL (0.0-0.6); Hematocrit 40.4 % (35.3-44.9); Hemoglobin 13.8 g/dL (11.5-15.4); Immature Granulocytes % 0.6 % (0-4); Lymphocytes # 1.8 K/mcL (0.6-4.6); Lymphocytes % 26.6 %; Mean Corpuscular HGB Conc 34.2 g/dL (31.6-35.5); Mean Corpuscular Hemoglobin 28.9 pg (28.0-33.3); Mean Corpuscular Volume 84.7 fL (83.0-100.0); Monocytes # 0.5 K/mcL (0.0-1.3); Monocytes % 7.2 %; Neutrophils # 4.4 K/mcL (1.6-8.9); Platelet Count 207 K/mcL (140-400); Red Blood Count 4.77 M/mcL (3.82-4.97); Red Cell Distribution Width 13.9 % (11.5-14.5); Segmented Neutrophils % 64.2 %; White Blood Count 6.8 K/mcL (4.3-11.1)
[2022-02-16 06:58] LABS: INR 1.3; Prothrombin Time 14.5 Seconds (9.4-12.1)
[2022-02-16 07:00] LABS: Activated Partial Thrombo Time 31.1 Seconds (26.0-36.0)
[2022-02-16] MEDS ORDERED: *HR* LORazepam 2 MG/ML VIAL ONE (07:00)
[2022-02-16] MEDS ORDERED: *HR* Adenosine 6 MG/2 ML VIAL IVP ONE (07:10)
[2022-02-16] MEDS ORDERED: *HR* Adenosine 6 MG/2 ML SYRINGE IVP ONE (07:10)
[2022-02-16 07:12] LABS: BUN/Creatinine Ratio 15 (6-26); Blood Urea Nitrogen 8 mg/dL (8-23); Calcium 9.4 mg/dL (8.6-10.3); Carbon Dioxide 26 mEq/L (23-29); Chloride 96 mEq/L (98-107); Glucose 109 mg/dL (70-105); Osmolality,Calculated 269 (280-300); Potassium 3.5 mEq/L (3.5-5.1); Sodium 130 mEq/L (136-145); Troponin I < 0.03 ng/mL (< 0.04)
[2022-02-16] MEDS ORDERED: 0.9 % Sodium Chloride 1,000 ML ONE (07:19)
[2022-02-16 08:56] LABS: VBG HCO3 28 mEq/L (21-27); VBG PCO2 48 mmHg (41-51); VBG PH 7.37 pH Units (7.32-7.42); VBG PO2 40 mmHg (25-50)
[2022-02-16 08:58] LABS: INR 1.3; Prothrombin Time 14.8 Seconds (9.4-12.1)
[2022-02-16] MEDS ORDERED: Metoprolol XL (24 HR) Succ 50 MG TAB.ER.24H PO ONE (09:21)
[2022-02-16] MEDS ORDERED: Naloxone 0.4 MG/ML INJ IVP PRN (09:57)
[2022-02-16] MEDS ORDERED: Ondansetron 4 MG/2 ML VIAL IVP PRN (09:57)
[2022-02-16] MEDS ORDERED: Albuterol 2.5 MG/3 ML NEBULIZER IH PRN (11:41)
[2022-02-16] MEDS ORDERED: Nitroglycerin 0.4 MG TAB.SUBL SL PRN (11:41)
[2022-02-16] MEDS: Isosorbide MONOnitrate (24 HR) 30 MG TAB.ER.24H PO SCH (12:20)
[2022-02-16] MEDS: amLODIPine 5 MG TABLET PO SCH (12:21)
[2022-02-16] MEDS: Furosemide 40 MG TABLET PO SCH (12:21)
[2022-02-16] MEDS: Apixaban 5 MG TABLET PO SCH ×2 (12:21→20:39)
[2022-02-16] MEDS: Gabapentin 300 MG CAPSULE PO SCH ×2 (15:36→20:39)
[2022-02-16] MEDS: levETIRAcetam 250 MG TABLET PO SCH (20:38)
[2022-02-16] MEDS: traZODone 50 MG TABLET PO SCH (20:39)
[2022-02-16] MEDS: Melatonin 3 MG TABLET PO PRN (22:07)
[2022-02-17 06:13] LABS: Basophils # 0.1 K/mcL (0.0-0.2); Eosinophils # 0.1 K/mcL (0.0-0.6); Eosinophils % 1.1 %; Hemoglobin 13.7 g/dL (11.5-15.4); Lymphocytes # 2.5 K/mcL (0.6-4.6); Lymphocytes % 39.8 %; Mean Corpuscular HGB Conc 33.4 g/dL (31.6-35.5); Mean Corpuscular Hemoglobin 28.7 pg (28.0-33.3); Mean Platelet Volume 9.4 fL (9.4-12.4); Monocytes # 0.6 K/mcL (0.0-1.3); Monocytes % 9.7 %; Platelet Count 219 K/mcL (140-400); Red Blood Count 4.77 M/mcL (3.82-4.97); Segmented Neutrophils % 47.4 %; White Blood Count 6.3 K/mcL (4.3-11.1)
[2022-02-17 06:34] LABS: BUN/Creatinine Ratio 17 (6-26); Blood Urea Nitrogen 10 mg/dL (8-23); Calcium 9.1 mg/dL (8.6-10.3); Carbon Dioxide 23 mEq/L (23-29); Chloride 104 mEq/L (98-107); Chol/HDL Ratio 3.8 (0-4.9); Cholesterol 130 mg/dL (< 200); Glucose 124 mg/dL (70-105); HDL Cholesterol 34 mg/dL (40-59); LDL Cholesterol,Calculated 78 mg/dL (< 100); Magnesium 1.9 mg/dL (1.6-2.6); Osmolality,Calculated 280 (280-300); Phosphorous 3.7 mg/dL (2.7-4.5); Potassium 3.1 mEq/L (3.5-5.1); Sodium 135 mEq/L (136-145); Triglycerides 89 mg/dL (< 150)
[2022-02-17] MEDS: *HR* Buprenorphine HCl 8 MG TAB.SUBL SL SCH (08:17)
[2022-02-17] MEDS: amLODIPine 5 MG TABLET PO SCH (08:17)
[2022-02-17] MEDS: Apixaban 5 MG TABLET PO SCH ×2 (08:17→20:47)
[2022-02-17] MEDS: levETIRAcetam 250 MG TABLET PO SCH ×2 (08:17→20:47)
[2022-02-17] MEDS: Furosemide 40 MG TABLET PO SCH (08:18)
[2022-02-17] MEDS: Metoprolol XL (24 HR) Succ 50 MG TAB.ER.24H PO SCH (08:19)
[2022-02-17] MEDS: Gabapentin 300 MG CAPSULE PO SCH ×3 (08:19→20:46)
[2022-02-17] MEDS: Isosorbide MONOnitrate (24 HR) 30 MG TAB.ER.24H PO SCH (08:20)
[2022-02-17] MEDS: traZODone 50 MG TABLET PO SCH (20:47)
[2022-02-18] MEDS: levETIRAcetam 250 MG TABLET PO SCH ×2 (08:14→19:37)
[2022-02-18] MEDS: amLODIPine 5 MG TABLET PO SCH (08:14)
[2022-02-18] MEDS: Gabapentin 300 MG CAPSULE PO SCH ×3 (08:14→19:38)
[2022-02-18] MEDS: Apixaban 5 MG TABLET PO SCH ×2 (08:15→19:37)
[2022-02-18] MEDS: Furosemide 40 MG TABLET PO SCH (08:15)
[2022-02-18] MEDS: *HR* Buprenorphine HCl 8 MG TAB.SUBL SL SCH (08:15)
[2022-02-18] MEDS: Isosorbide MONOnitrate (24 HR) 30 MG TAB.ER.24H PO SCH (08:15)
[2022-02-18] MEDS: Metoprolol XL (24 HR) Succ 50 MG TAB.ER.24H PO SCH (08:15)
[2022-02-18] MEDS ORDERED: Ipratropium/Albuterol Neb 3 ML IH PRN (10:12)
[2022-02-18] MEDS: MethylPREDNISolone 40 MG/ML VIAL IVP SCH (11:03)
[2022-02-18] MEDS: traZODone 50 MG TABLET PO SCH (19:38)
[2022-02-19 04:38] LABS: Hematocrit 35.5 % (35.3-44.9); Hemoglobin 11.6 g/dL (11.5-15.4); Mean Corpuscular HGB Conc 32.7 g/dL (31.6-35.5); Mean Corpuscular Volume 88.8 fL (83.0-100.0); Mean Platelet Volume 9.8 fL (9.4-12.4); Platelet Count 185 K/mcL (140-400); Red Cell Distribution Width 13.9 % (11.5-14.5); White Blood Count 6.9 K/mcL (4.3-11.1)
[2022-02-19 04:53] LABS: BUN/Creatinine Ratio 45 (6-26); Blood Urea Nitrogen 25 mg/dL (8-23); Calcium 8.7 mg/dL (8.6-10.3); Carbon Dioxide 25 mEq/L (23-29); Chloride 104 mEq/L (98-107); Glucose 107 mg/dL (70-105); Osmolality,Calculated 283 (280-300); Potassium 4.4 mEq/L (3.5-5.1); Sodium 134 mEq/L (136-145)
[2022-02-19] MEDS: Isosorbide MONOnitrate (24 HR) 30 MG TAB.ER.24H PO SCH (08:46)
[2022-02-19] MEDS: *HR* Buprenorphine HCl 8 MG TAB.SUBL SL SCH (08:46)
[2022-02-19] MEDS: Gabapentin 300 MG CAPSULE PO SCH ×3 (08:46→20:09)
[2022-02-19] MEDS: levETIRAcetam 250 MG TABLET PO SCH ×2 (08:46→20:09)
[2022-02-19] MEDS: Apixaban 5 MG TABLET PO SCH (08:46)
[2022-02-19] MEDS: Metoprolol XL (24 HR) Succ 50 MG TAB.ER.24H PO SCH (08:46)
[2022-02-19] MEDS: MethylPREDNISolone 40 MG/ML VIAL IVP SCH (08:48)
[2022-02-19] MEDS: amLODIPine 5 MG TABLET PO SCH (09:36)
[2022-02-19] MEDS: Furosemide 40 MG TABLET PO SCH (09:36)
[2022-02-19 13:41] LABS: INR 1.2; Prothrombin Time 13.6 Seconds (9.4-12.1)
[2022-02-19 14:30] LABS: Heparin anti-factor XA UFH 0.56 IU/mL (0.30-0.70)
[2022-02-19 14:31] LABS: INR 1.2
[2022-02-19] MEDS ORDERED: Warfarin perPT PO PRN (18:00)
[2022-02-19] MEDS: traZODone 50 MG TABLET PO SCH (20:09)
[2022-02-19] MEDS: Melatonin 3 MG TABLET PO PRN (20:09)
[2022-02-19] MEDS ORDERED: *HR* Heparin 5,000 UNIT/ML VIAL IVP ONE (21:00)
[2022-02-19] MEDS ORDERED: *HR* Heparin 5,000 UNIT/ML VIAL IVP PRN ×2 (21:00)
[2022-02-19] MEDS ORDERED: Heparin 25,000UNIT/250ML 1/2NS 25,000 UNIT/250 ML IV.SOLN IVC SCH (21:00)
[2022-02-20] MEDS: DilTIAZem CD (24hr) 120 MG CAP.ER.24H PO SCH (08:41)
[2022-02-20] MEDS: Isosorbide MONOnitrate (24 HR) 30 MG TAB.ER.24H PO SCH (08:42)
[2022-02-20] MEDS: Metoprolol XL (24 HR) Succ 50 MG TAB.ER.24H PO SCH (08:42)
[2022-02-20] MEDS: levETIRAcetam 250 MG TABLET PO SCH ×2 (08:43→20:55)
[2022-02-20] MEDS: Gabapentin 300 MG CAPSULE PO SCH ×3 (08:43→20:54)
[2022-02-20] MEDS: predniSONE 10 MG TABLET PO SCH (08:43)
[2022-02-20] MEDS: *HR* Buprenorphine HCl 8 MG TAB.SUBL SL SCH (08:44)
[2022-02-20] MEDS: Furosemide 40 MG TABLET PO SCH (08:44)
[2022-02-20] MEDS: Acetaminophen 325 MG TABLET PO PRN (09:36)
[2022-02-20] MEDS ORDERED: *HR* Midazolam HCl 2 MG/2 ML VIAL ONE (10:07)
[2022-02-20] MEDS ORDERED: *HR* FentaNYL (PF) 100 MCG/2 ML VIAL ONE (10:07)
[2022-02-20] MEDS ORDERED: Heparin 1,000 UNITS/500 mL 500 ML ONE (10:08)
[2022-02-20] MEDS ORDERED: Iopamidol - 370 200 ML INFUS..BTL ONE (10:08)
[2022-02-20] MEDS ORDERED: 0.9 % Sodium Chloride 2,000 ML ONE (10:08)
[2022-02-20] MEDS ORDERED: *HR* Heparin 10,000 UNIT/10 ML VIAL ONE (10:08)
[2022-02-20] MEDS ORDERED: Nitroglycerin 1,000 MCG/5 ML VIAL IV ONE (10:08)
[2022-02-20] MEDS ORDERED: Apixaban 5 MG TABLET PO SCH (12:15)
[2022-02-20 16:13] LABS: INR 1.3; Prothrombin Time 14.3 Seconds (9.4-12.1)
[2022-02-20] MEDS ORDERED: *HR* Warfarin 2.5 MG TABLET PO ONE (18:00)
[2022-02-20] MEDS: traZODone 50 MG TABLET PO SCH (20:54)
[2022-02-20] MEDS ORDERED: *HR* Heparin 5,000 UNIT/ML VIAL IVP ONE (23:39)
[2022-02-21] MEDS ORDERED: *HR* Heparin 5,000 UNIT/ML VIAL IVP PRN ×2 (00:01)
[2022-02-21] MEDS ORDERED: Heparin 25,000UNIT/250ML 1/2NS 25,000 UNIT/250 ML IV.SOLN IVC SCH ×2 (00:01→10:26)
[2022-02-21 00:49] LABS: Heparin anti-factor XA UFH 0.11 IU/mL (0.30-0.70); INR 1.1; Prothrombin Time 11.9 Seconds (9.4-12.1)
[2022-02-21] MEDS: Gabapentin 300 MG CAPSULE PO SCH ×3 (08:08→20:50)
[2022-02-21] MEDS: *HR* Buprenorphine HCl 8 MG TAB.SUBL SL SCH (08:08)
[2022-02-21] MEDS: predniSONE 10 MG TABLET PO SCH (08:08)
[2022-02-21] MEDS: Metoprolol XL (24 HR) Succ 50 MG TAB.ER.24H PO SCH (08:09)
[2022-02-21] MEDS: Furosemide 40 MG TABLET PO SCH (08:09)
[2022-02-21] MEDS: DilTIAZem CD (24hr) 120 MG CAP.ER.24H PO SCH (08:09)
[2022-02-21] MEDS: levETIRAcetam 250 MG TABLET PO SCH ×2 (08:10→20:50)
[2022-02-21] MEDS: Isosorbide MONOnitrate (24 HR) 30 MG TAB.ER.24H PO SCH (08:11)
[2022-02-21] MEDS: Warfarin perPT PO SCH ×2 (08:20→20:51)
[2022-02-21] MEDS: Acetaminophen 325 MG TABLET PO PRN ×2 (08:26→18:09)
[2022-02-21 09:42] LABS: BUN/Creatinine Ratio 25 (6-26); Blood Urea Nitrogen 13 mg/dL (8-23); Calcium 8.7 mg/dL (8.6-10.3); Carbon Dioxide 28 mEq/L (23-29); Chloride 103 mEq/L (98-107); Glucose 125 mg/dL (70-105); Osmolality,Calculated 286 (280-300); Potassium 3.9 mEq/L (3.5-5.1); Sodium 137 mEq/L (136-145)
[2022-02-21] MEDS ORDERED: *HR* Warfarin 2.5 MG TABLET PO ONE ×2 (18:00→20:45)
[2022-02-21] MEDS: traZODone 50 MG TABLET PO SCH (20:49)
[2022-02-21] MEDS: *HR* Enoxaparin 60 MG/0.6 ML SYRINGE SQ SCH (20:50)
[2022-02-22] MEDS: *HR* Enoxaparin 60 MG/0.6 ML SYRINGE SQ SCH ×2 (06:16→17:48)
[2022-02-22] MEDS: Isosorbide MONOnitrate (24 HR) 30 MG TAB.ER.24H PO SCH (08:10)
[2022-02-22] MEDS: Furosemide 40 MG TABLET PO SCH (08:10)
[2022-02-22] MEDS: DilTIAZem CD (24hr) 120 MG CAP.ER.24H PO SCH (08:10)
[2022-02-22] MEDS: *HR* Buprenorphine HCl 8 MG TAB.SUBL SL SCH (08:11)
[2022-02-22] MEDS: Metoprolol XL (24 HR) Succ 50 MG TAB.ER.24H PO SCH (08:11)
[2022-02-22] MEDS: predniSONE 10 MG TABLET PO SCH (08:11)
[2022-02-22] MEDS: levETIRAcetam 250 MG TABLET PO SCH ×2 (08:11→20:35)
[2022-02-22] MEDS: Gabapentin 300 MG CAPSULE PO SCH ×3 (08:12→20:35)
[2022-02-22 09:03] LABS: INR 1.1; Prothrombin Time 12.5 Seconds (9.4-12.1)
[2022-02-22 10:22] LABS: Amphetamine Screen,Urine Negative ng/mL (Cutoff=1000); Barbiturate Screen,Urine Negative ng/mL (Cutoff=200); Benzodiazepines Screen,Urine Negative ng/mL (Cutoff=200); Cannabinoid Screen,Urine Negative ng/mL (Cutoff = 50); Cocaine Screen,Urine Negative ng/mL (Cutoff= 300); Opiate Screen,Urine Negative ng/mL (Cutoff=300); Phencyclidine Screen,Urine Negative ng/mL (Cutoff=25)
[2022-02-22] MEDS: Acetaminophen 325 MG TABLET PO PRN (15:25)
[2022-02-22] MEDS ORDERED: *HR* Warfarin 5 MG TABLET PO ONE (18:00)
[2022-02-22] MEDS: Warfarin perPT PO SCH (20:21)
[2022-02-22] MEDS: traZODone 50 MG TABLET PO SCH (20:35)
[2022-02-23 02:47] LABS: INR 1.2; Prothrombin Time 13.4 Seconds (9.4-12.1)
[2022-02-23 04:17] VITALS: TEMP 97.6
[2022-02-23] MEDS: *HR* Enoxaparin 60 MG/0.6 ML SYRINGE SQ SCH (06:30)
[2022-02-23 09:15] VITALS: BP 128/50; PULSE 66; O2SAT 94
[2022-02-23] MEDS: Isosorbide MONOnitrate (24 HR) 30 MG TAB.ER.24H PO SCH (09:51)
[2022-02-23] MEDS: levETIRAcetam 250 MG TABLET PO SCH (09:51)
[2022-02-23] MEDS: Furosemide 40 MG TABLET PO SCH (09:52)
[2022-02-23] MEDS: *HR* Buprenorphine HCl 8 MG TAB.SUBL SL SCH (09:52)
[2022-02-23] MEDS: Gabapentin 300 MG CAPSULE PO SCH ×2 (09:52→15:16)
[2022-02-23] MEDS: DilTIAZem CD (24hr) 120 MG CAP.ER.24H PO SCH (09:52)
[2022-02-23] MEDS: Metoprolol XL (24 HR) Succ 50 MG TAB.ER.24H PO SCH (09:52)
[2022-02-23] MEDS: predniSONE 10 MG TABLET PO SCH (09:52)
[2022-02-23] MEDS ORDERED: Flu Vac QV 22-23 (6MOS UP)/PF 0.5 ML SYRINGE IM ONE (11:20)
[2022-02-23] MEDS: Acetaminophen 325 MG TABLET PO PRN (15:10)
[2022-02-23] MEDS ORDERED: *HR* Warfarin 5 MG TABLET PO ONE (18:00)
== END 2022-02-23 16:43 | disposition home or self-care (01) | DRG 191 ==
LOC: 2NENU 06:07 → EMEROOARM 06:07 → SUATTDRO 09:57 → 2NENU 10:24
PROVIDERS: ADMIT Hospitalist; ATTEND Internal Medicine

== ENCOUNTER 2022-02-26 19:08 | Observation (INO) ==
[2022-02-26] MEDS ORDERED: Nitroglycerin 0.4 MG TAB.SUBL SL PRN (19:11)
[2022-02-26] MEDS ORDERED: Aspirin 81 MG TAB.CHEW PO ONE (19:11)
[2022-02-26] MEDS ORDERED: Nitroglycerin 0.4 MG TAB.SUBL SL ONE (19:12)
[2022-02-26] MEDS ORDERED: methylPREDNISolone 125 MG/2 ML VIAL IVP ONE (19:12)
[2022-02-26] MEDS ORDERED: Ipratropium/Albuterol Neb 3 ML IH ONE (19:12)
[2022-02-26] MEDS ORDERED: DilTIAZem 50 MG/50 ML IV.SOLN IVC SCH (19:30)
[2022-02-26 19:51] LABS: Basophils % 0.4 %; Eosinophils # 0.3 K/mcL (0.0-0.6); Eosinophils % 3.2 %; Hematocrit 41.3 % (35.3-44.9); Hemoglobin 13.5 g/dL (11.5-15.4); Immature Granulocytes % 0.5 % (0-4); Lymphocytes # 2.3 K/mcL (0.6-4.6); Lymphocytes % 29.7 %; Mean Corpuscular HGB Conc 32.7 g/dL (31.6-35.5); Mean Corpuscular Hemoglobin 28.8 pg (28.0-33.3); Mean Corpuscular Volume 88.1 fL (83.0-100.0); Mean Platelet Volume 9.2 fL (9.4-12.4); Monocytes # 0.5 K/mcL (0.0-1.3); Monocytes % 6.6 %; Neutrophils # 4.7 K/mcL (1.6-8.9); Platelet Count 299 K/mcL (140-400); Red Blood Count 4.69 M/mcL (3.82-4.97); Red Cell Distribution Width 13.8 % (11.5-14.5); Segmented Neutrophils % 59.6 %; White Blood Count 7.9 K/mcL (4.3-11.1)
[2022-02-26 20:00] LABS: Alanine Aminotransferase 18 Units/L (7-52); Albumin 4.2 g/dL (3.5-5.7); Albumin/Globulin Ratio 1.1 (1.1-2.2); Alkaline Phosphatase 153 Units/L (34-104); Aspartate Amino Transferase 18 Units/L (13-39); BUN/Creatinine Ratio 13 (6-26); Bilirubin,Direct 0.1 mg/dL (0.0-0.2); Bilirubin,Indirect 0.4 mg/dL (0.0-1.0); Bilirubin,Total 0.5 mg/dL (0.3-1.0); Blood Urea Nitrogen 7 mg/dL (8-23); Calcium 10.1 mg/dL (8.6-10.3); Carbon Dioxide 26 mEq/L (23-29); Chloride 96 mEq/L (98-107); Globulin 3.8 g/dL (2.4-3.5); Glucose 114 mg/dL (70-105); Lipase 10 Units/L (11-82); Osmolality,Calculated 273 (280-300); Potassium 3.6 mEq/L (3.5-5.1); Sodium 132 mEq/L (136-145); Troponin I < 0.03 ng/mL (< 0.04)
[2022-02-26 20:08] LABS: INR 1.2; Prothrombin Time 13.3 Seconds (9.4-12.1)
[2022-02-26 20:10] LABS: Activated Partial Thrombo Time 32.3 Seconds (26.0-36.0)
[2022-02-26] MEDS ORDERED: Ondansetron ODT 4 MG TAB.RAPDIS SL PRN (21:59)
[2022-02-26] MEDS ORDERED: Acetaminophen 325 MG TABLET PO PRN (21:59)
[2022-02-26] MEDS ORDERED: Naloxone 0.4 MG/ML INJ IVP PRN (21:59)
[2022-02-26] MEDS ORDERED: Melatonin 3 MG TABLET PO PRN (21:59)
[2022-02-26] MEDS ORDERED: *HR* Rivaroxaban 15 MG TABLET PO STA (22:22)
[2022-02-26] MEDS ORDERED: 0.9 % Sodium Chloride 1,000 ML IVC SCH (22:30)
[2022-02-26] MEDS ORDERED: *HR* Warfarin 5 MG TABLET PO ONE (22:45)
[2022-02-26] MEDS ORDERED: Ipratropium/Albuterol Neb 3 ML IH PRN (23:20)
[2022-02-27] MEDS ORDERED: 0.9 % Sodium Chloride 500 ML IVC ONE (01:47)
[2022-02-27 06:00] LABS: Basophils % 0.2 %; Eosinophils % 0.9 %; Hematocrit 37.4 % (35.3-44.9); Hemoglobin 12.2 g/dL (11.5-15.4); Immature Granulocytes % 0.5 % (0-4); Lymphocytes # 1.3 K/mcL (0.6-4.6); Lymphocytes % 29.4 %; Mean Corpuscular HGB Conc 32.6 g/dL (31.6-35.5); Mean Corpuscular Hemoglobin 29.1 pg (28.0-33.3); Mean Corpuscular Volume 89.3 fL (83.0-100.0); Monocytes # 0.2 K/mcL (0.0-1.3); Monocytes % 3.4 %; Neutrophils # 2.9 K/mcL (1.6-8.9); Platelet Count 253 K/mcL (140-400); Red Blood Count 4.19 M/mcL (3.82-4.97); Red Cell Distribution Width 13.9 % (11.5-14.5); Segmented Neutrophils % 65.6 %; White Blood Count 4.4 K/mcL (4.3-11.1)
[2022-02-27 06:09] LABS: INR 1.1; Prothrombin Time 12.8 Seconds (9.4-12.1)
[2022-02-27] MEDS: *HR* Enoxaparin 60 MG/0.6 ML SYRINGE SQ SCH ×2 (06:26→18:04)
[2022-02-27] MEDS ORDERED: MethylPREDNISolone 40 MG/ML VIAL IVP SCH (09:44)
[2022-02-27 09:47] LABS: BUN/Creatinine Ratio 19 (6-26); Blood Urea Nitrogen 8 mg/dL (8-23); Carbon Dioxide 23 mEq/L (23-29); Chloride 107 mEq/L (98-107); Glucose 106 mg/dL (70-105); Osmolality,Calculated 279 (280-300); Phosphorous 4.3 mg/dL (2.7-4.5); Potassium 3.9 mEq/L (3.5-5.1); Sodium 135 mEq/L (136-145); Troponin I 0.08 ng/mL (< 0.04)
[2022-02-27] MEDS: Metoprolol XL (24 HR) Succ 50 MG TAB.ER.24H PO SCH (09:57)
[2022-02-27] MEDS: cephALEXin 500 MG CAPSULE PO SCH ×2 (09:57→20:30)
[2022-02-27] MEDS: DilTIAZem CD (24hr) 120 MG CAP.ER.24H PO SCH (09:58)
[2022-02-27] MEDS: levETIRAcetam 250 MG TABLET PO SCH ×2 (09:58→20:29)
[2022-02-27] MEDS: Levalbuterol Neb 0.63 MG/3 ML IH SCH ×3 (11:57→20:42)
[2022-02-27] MEDS ORDERED: Nitroglycerin 0.4 MG TAB.SUBL SL PRN (13:46)
[2022-02-27] MEDS: Isosorbide MONOnitrate (24 HR) 30 MG TAB.ER.24H PO SCH (15:18)
[2022-02-27] MEDS ORDERED: *HR* Warfarin 5 MG TABLET PO ONE (18:00)
[2022-02-27] MEDS ORDERED: Warfarin perPT PO PRN (18:00)
[2022-02-27] MEDS: Gabapentin 300 MG CAPSULE PO PRN (18:04)
[2022-02-28] MEDS: MethylPREDNISolone 40 MG/ML VIAL IVP SCH ×2 (02:26→13:52)
[2022-02-28] MEDS: Gabapentin 300 MG CAPSULE PO PRN ×2 (02:26→13:51)
[2022-02-28] MEDS: Levalbuterol Neb 0.63 MG/3 ML IH SCH ×3 (03:54→16:00)
[2022-02-28 05:43] LABS: INR 1.2; Prothrombin Time 13.5 Seconds (9.4-12.1)
[2022-02-28 05:52] LABS: BUN/Creatinine Ratio 17 (6-26); Blood Urea Nitrogen 7 mg/dL (8-23); Calcium 9.2 mg/dL (8.6-10.3); Carbon Dioxide 22 mEq/L (23-29); Chloride 103 mEq/L (98-107); Glucose 140 mg/dL (70-105); Magnesium 1.8 mg/dL (1.6-2.6); Osmolality,Calculated 274 (280-300); Potassium 4.2 mEq/L (3.5-5.1); Sodium 132 mEq/L (136-145)
[2022-02-28] MEDS: *HR* Enoxaparin 60 MG/0.6 ML SYRINGE SQ SCH ×2 (06:17→17:31)
[2022-02-28] MEDS: Isosorbide MONOnitrate (24 HR) 30 MG TAB.ER.24H PO SCH (09:00)
[2022-02-28] MEDS: levETIRAcetam 250 MG TABLET PO SCH (09:00)
[2022-02-28] MEDS: Metoprolol XL (24 HR) Succ 50 MG TAB.ER.24H PO SCH (09:00)
[2022-02-28] MEDS ORDERED: Furosemide 40 MG TABLET PO SCH (09:00)
[2022-02-28] MEDS: cephALEXin 500 MG CAPSULE PO SCH (09:00)
[2022-02-28] MEDS ORDERED: amLODIPine 5 MG TABLET PO SCH (09:00)
[2022-02-28] MEDS: DilTIAZem CD (24hr) 120 MG CAP.ER.24H PO SCH (09:00)
[2022-02-28] MEDS ORDERED: *HR* Buprenorphine HCl 2 MG SUBLINGUAL TABLET SL SCH (09:00)
[2022-02-28 15:00] VITALS: BP 107/70; PULSE 68; TEMP 98.9
[2022-02-28] MEDS ORDERED: Flu Vac QV 22-23 (6MOS UP)/PF 0.5 ML SYRINGE IM ONE (15:14)
[2022-02-28 16:02] VITALS: O2SAT 95
[2022-02-28] MEDS ORDERED: *HR* Warfarin 2.5 MG TABLET PO ONE (18:00)
== END 2022-02-28 20:25 | disposition home or self-care (01) ==
LOC: EMEROOARM 19:08 → 3NENU 19:08
PROVIDERS: ADMIT Internal Medicine; ATTEND Internal Medicine